=== PATIENT | male | born 1965 | race Caucasian/White ===

== ENCOUNTER 2017-04-23 12:46 | Inpatient (IN) | payer OTHER ==
[2017-04-23 15:26] VITALS: BMI 35.2
--- NOTE | 2017-04-23 17:20 | HP ---
Admission [facility] Chief Complaint: on MMTP was misusing pain medication for chest pain sent for rehab Allergies/Adverse Reactions: Allergies Allergy/AdvReac Type Severity Reaction Status Date / Time penicillin G Allergy Severe Hives Verified 04/23/17 15:59 History of Present Illness: 51 yo m with h/o opioid use diosrder on MMTP 140mg daily, ldm today , [facility] M[facility] PMHX schizoaffective do, HTN, HPe c, taking medications which he does not have with him. no suicidal ideation at this time no suicide attempts in the past. no seizues, no DTs. using ilict benzidiazepiens and prescribed [facility] here for rehab. otehrise doing well on program as per patient. uses benzodiazepines, on occasion but no withdrawwal sx or seizures reported, has not drunk alcohol for many years Exam Limitations: No Limitations - Ebola screening Have you traveled outside of the country in the last 21 days: No Have you had contact with anyone from an Ebola affected area: No Have you been sick,other than usual withdrawal symptoms: No Do you have a fever: No - Review of Systems Constitutional: No Symptoms Reported EENT: reports: No Symptoms Reported Respiratory: reports: No Symptoms reported Cardiac: reports: No Symptoms Reported GI: reports: No Symptoms Reported : reports: No Symptoms Reported Musculoskeletal: reports: Other (pain on sternum when he presses hard) Integumentary: reports: No Symptoms Reported Neuro: reports: No Symptoms reported Endocrine: reports: No Symptoms Reported Hematology: reports: No Symptoms Reported Psychiatric: reports: Judgement Intact, Mood/Affect Appropiate, Orientated x3, Anxious, Depressed Other Systems: Reviewed and Negative Patient History - Patient Medical History Hx Anemia: No Hx Asthma: No Hx Chronic Obstructive Pulmonary Disease (COPD): No Hx Cancer: No Hx Cardiac Disorders: No Hx Congestive Heart Failure: No Hx Hypertension: No Hx Hypercholesterolemia: No Hx Pacemaker: No HX Cerebrovascular Accident: No Hx Seizures: No Hx Dementia: No Hx Diabetes: No Hx Gastrointestinal Disorders: Yes (acid reflux) Hx Liver Disease: No Hx Genitourinary Disorders: No Hx Sexually Transmitted Disorders: No Hx Renal Disease (ESRD): No Hx Thyroid Disease: No Hx Human Immunodeficiency Virus (HIV): No Hx Hepatitis C: Yes (treated but returned, needs retreatment) Hx Depression: Yes Hx Suicide Attempt: Yes (20 years ago) Hx Bipolar Disorder: Yes (WAS ON NEURONTIN,DEPAKOTE IN THE APST.NO MEDS IN 6 MONTHS.) Hx Schizophrenia: No Other Medical History: schizoaffective, no si, no suicide attempts - Patient Surgical History Past Surgical History: Yes Hx Neurologic Surgery: No Hx Cataract Extraction: No Hx Cardiac Surgery: No Hx Lung Surgery: No Hx Breast Surgery: No Hx Breast Biopsy: No Hx Abdominal Surgery: No Hx Appendectomy: No Hx Cholecystectomy: No Hx Genitourinary Surgery: No Hx Section: No Hx Orthopedic Surgery: No Other Surgical History: incision and drainage of abscess of left leg at [facility] in 2009 Anesthesia Reaction: No - PPD History Previous Implant?: Yes Documented Results: Negative w/proof Date: 09/20/14 PPD to be Administered?: Yes - Reproductive History Patient is a Female of Child Bearing Age (11 -55 yrs old): No Patient : No - Smoking Cessation Smoking history: Current every day smoker Have you smoked in the past 12 months: Yes Aproximately how many cigarettes per day: 40 Cigars Per Day: 0 Hx Chewing Tobacco Use: No Initiated information on smoking cessation: Yes 'Breaking Loose' booklet given: 04/23/17 - Substance & Tx. History Hx Alcohol Use: No Hx Substance Use: Yes Substance Use Type: Heroin, Opiates, Prescribed, Tranquilizers Hx Substance Use Treatment: Yes - Substances Abused Benzodiazepine (Klonopin) Route: Oral Frequency: 1-2 times per week Amount used: 3-4 klonpin daily Age of first use: 14 Date of Last Use: 04/21/17 Family Disease History - Family Disease History Family Disease History: Diabetes: Grandparent (ALCOHOLIC), Mother, Other: Grandparent, Father (ALCOHOLIC), Brother (dsa) Admission Physical Exam BHS - Vital Signs Vital Signs: Vital Signs - 24 hr 04/23/17 15:23 Temperature 97 F L Pulse Rate 106 H Respiratory 20 Rate Blood Pressure 145/91 - Physical General Appearance: Yes: Within Normal Limits, No Apparent Distress, Nourished, Appropriately Dressed, Disheveled HEENTM: Yes: Within Normal Limits, EOMI, Hearing grossly Normal, Normal ENT Inspection, Normocephalic, Normal Voice, ROOPA, Pharynx Normal Respiratory: Yes: Within Normal Limits, Chest Non-Tender, Lungs Clear, Normal Breath Sounds, No Respiratory Distress, No Accessory Muscle Use, Other (tender palpation anterior chest wall) Neck: Yes: Within Normal Limits, No masses,lesions,Nodules, Supple, Trachea in good position Breast: Yes: Breast Exam Deferred Cardiology: Yes: Within Normal Limits, Regular Rhythm, Regular Rate, S1, S2 Abdominal: Yes: Within Normal Limits, Normal Bowel Sounds, Non Tender, Flat, Soft Genitourinary: Yes: Within Normal Limits Back: Yes: Within Normal Limits, Normal Inspection Musculoskeletal: Yes: Within Normal Limits, full range of Motion, Gait Steady, Pelvis Stable Extremities: Yes: Within Normal Limits, Normal Capillary Refill, Normal Inspection, Normal Range of Motion, Non-Tender Neurological: Yes: diagnostic sales specialist II-XII NML intact, Fully Oriented, Alert, Motor Strength 5/5, Depressed Affect Integumentary: Yes: Within Normal Limits, Normal Color, Dry, Warm Lymphatic: Yes: Within Normal Limits - Addiitonal Findings: no withdrawal sx, appropriate affect noted - Diagnostic (1) Opioid dependence on agonist therapy Current Visit: Yes Status: Acute (2) Benzodiazepine abuse, episodic Current Visit: Yes Status: Acute (3) Nicotine dependence Current Visit: No Status: Active (4) GERD (gastroesophageal reflux disease) Current Visit: No Status: Chronic (5) Schizoaffective disorder Current Visit: No Status: Chronic Cleared for Admission [facility] - Detox or Rehab Claeared for Rehab Admission: Yes [facility] Breath Alcohol Content Breath Alcohol Content: 0 Urine Drug Screen - Results Drug Screen Negative: No Urine Drug Screen Results: OPI-Opiates, BZO-Benzodiazepines, MTD-Methadone, TCA- Tricyclic Antidepress Inpatient Rehab Admission - Initial Determination Are CD services needed?: Yes Free of communicable disease: Yes Not in need of hospitalization: Yes - Rehab Admission Criteria Comorbidities: Yes Patient is meeting Inpatient Rehab admission criteria:: Yes
[2017-04-23] MEDS ORDERED: MENTHOL/PHENOL 1 EACH UD MM PRN (17:23)
[2017-04-23] MEDS ORDERED: MAGNESIUM CITRATE 300 ML BOTTLE PO PRN (17:23)
[2017-04-23] MEDS ORDERED: MAGNESIUM HYDROX 2400MG/30ML ORAL SUSPENSION 30 ML CUP PO PRN (17:23)
[2017-04-23] MEDS ORDERED: LOPERAMIDE HCL 2 MG CAPSULE PO PRN (17:23)
[2017-04-23] MEDS ORDERED: P-EPHED 60MG/TRIPROLIDI 2.5MG TABLET PO PRN (17:23)
[2017-04-23] MEDS ORDERED: guaiFENesin/D-METHORPHAN HB 10 ML UNIT-DOSE CUPS PO PRN (17:23)
[2017-04-23] MEDS ORDERED: TUBERCULIN PPD 5 TU/0.1ML VIAL ID ONE (20:28)
[2017-04-23] MEDS: NICOTINE 21 MG/24 HOURS TOPICAL PATCH TD SCH (20:29)
[2017-04-23] MEDS: PANTOPRAZOLE 40 MG TABLET (FP) PO SCH (20:30)
[2017-04-23] MEDS: GABAPENTIN 100 MG CAPSULE (FP) PO SCH (21:56)
[2017-04-23] MEDS: THIAMINE HCL 100 MG TABLET (FP) PO SCH (21:56)
[2017-04-23] MEDS: NAPROXEN 500 MG TABLET (FP) PO SCH (21:57)
[2017-04-24 03:11] LABS: URINE APPEARANCE CLEAR; URINE BILIRUBIN NEGATIVE (NEGATIVE); URINE BLOOD NEGATIVE (NEGATIVE); URINE COLOR YELLOW; URINE GLUCOSE (UA) NEGATIVE (NEGATIVE); URINE KETONE NEGATIVE (NEGATIVE); URINE NITRITE NEGATIVE (NEGATIVE); URINE PROTEIN NEGATIVE (NEGATIVE); URINE UROBILINOGEN NEGATIVE mg/dL (0.2-1.0)
[2017-04-24] MEDS: GABAPENTIN 100 MG CAPSULE (FP) PO SCH ×3 (05:58→22:17)
[2017-04-24] MEDS: NICOTINE POLACRILEX 4 MG GUM BC PRN (06:30)
--- NOTE | 2017-04-24 08:57 | HP ---
Psychiatrist Admission - Data Date of interview: 04/24/17 Admission source: [facility] Identifying data: This is the first admission to [address] [place] [address] for this 51 years old H father of 30 yo daughter, undomiciled,supported by [facility]. Medical History: GERD,Hep C. Psychiatric History: Reports first contact with psychiatrist about 20 years ago after first nervious breakdown.Patient was dx with Bipolar disorder,then with schizoaffective disoredr.He reports at least 5 psychiatric hospitalizations.Most recent admission was 5-6 years ago to [facility].Reports one suicidal attempt 20 years ago.Patient was under care of psychiatrist until about 6 months ago.Patient obtains his psychotropic medications from local ER.Depakote 500 mg po hs,Seroquel 200 mg po bid, Neurontin 600 mg po tid,Xanax 2 mg prn. Physical/Sexual Abuse/Trauma History: denies Vital Signs: Vital Signs - 24 hr 04/23/17 04/23/17 04/24/17 15:23 20:27 03:30 Temperature 97 F L 97 F L Pulse Rate 106 H 103 H Respiratory 20 18 20 Rate Blood Pressure 145/91 116/85 04/24/17 06:58 Temperature 97.7 F Pulse Rate 70 Respiratory 18 Rate Blood Pressure 119/77 Allergies/Adverse Reactions: Allergies Allergy/AdvReac Type Severity Reaction Status Date / Time penicillin G Allergy Severe Hives Verified 04/23/17 22:41 Date of last physical exam: 05/23/17 Concur with the findings of this exam: Yes - Substance Abuse/Tx History Hx Alcohol Use: Yes (stopped drinking 7 years ago) Hx Substance Use: Yes (heroin since 14 yo (IV) on MMTP 140 mg ,Xanax 9 yo) Substance Use Type: Alcohol, Heroin, Opiates, Tranquilizers Hx Substance Use Treatment: Yes (completed [facility] 7 yo) Mental Status Exam - Mental Status Exam Alert and Oriented to: Time, Place, Person Cognitive Function: Grossly Intact Patient Appearance: Well Groomed Mood: Anxious Affect: Mood Congruent Patient Behavior: Appropriate, Cooperative Speech Pattern: Clear Voice Loudness: Normal Thought Process: Goal Oriented Thought Disorder: Being Controlled Hallucinations: Denies Suicidal Ideation: Denies Homicidal Ideation: Denies Insight/Judgement: Fair Sleep: Fair Appetite: Good Muscle strength/Tone: Normal Gait/Station: Normal Psychiatric Findings - Problem List ([place] 1, 2,3) (1) Opioid dependence on agonist therapy Current Visit: Yes Status: Chronic (2) Nicotine dependence Current Visit: No Status: Chronic (3) Benzodiazepine dependence Current Visit: Yes Status: Chronic (4) GERD (gastroesophageal reflux disease) Current Visit: Yes Status: Chronic (5) Schizoaffective disorder Current Visit: Yes Status: Chronic - Initial Treatment Plan Initial Treatment Plan: Seroquel 200 mg po bid,Depakote 500 mg po hs.Will monitor progress.
[2017-04-24] MEDS ORDERED: METHADONE HCL 10 MG TABLET PO SCH (09:45)
[2017-04-24] MEDS ORDERED: METHADONE HCL 10 MG TABLET ONE (10:11)
[2017-04-24] MEDS ORDERED: METHADONE HCL 40 MG DISPERSABLE TABLET ONE (10:12)
--- NOTE | 2017-04-24 10:12 | EKG ---
Test Reason : Blood Pressure : / mmHG Vent. Rate : 099 BPM Atrial Rate : 099 BPM P-R Int : 124 ms QRS Dur : 082 ms QT Int : 342 ms P-R-T Axes : 055 025 029 degrees QTc Int : 438 ms NORMAL SINUS RHYTHM NO PREVIOUS ECGS AVAILABLE Confirmed by MAX KIM MD ([id number]) on 04/24/2017 10:12:06 AM Referred By: GEORGETTE BLEVINS Confirmed By:MAX KIM MD
[2017-04-24] MEDS: PRENATAL VITAMINS W/ FOLIC ACID TABLET (FP) PO SCH (10:23)
[2017-04-24] MEDS: NICOTINE 21 MG/24 HOURS TOPICAL PATCH TD SCH (10:23)
[2017-04-24] MEDS: PANTOPRAZOLE 40 MG TABLET (FP) PO SCH (10:24)
[2017-04-24] MEDS: DIVALPROEX SODIUM 500 MG TABLET E.C. PO SCH (10:25)
[2017-04-24] MEDS: METHADONE 120 MG, METHADONE 20 MG PO SCH (10:25)
[2017-04-24] MEDS: NAPROXEN 500 MG TABLET (FP) PO SCH ×2 (10:25→22:17)
[2017-04-24 11:37] LABS: URINE LEUK ESTERASE Negative (NEGATIVE)
[2017-04-24] MEDS ORDERED: FLU VACCINE QUAD 60 MCG/0.5 ML (MDV 17-18) IM ONE (12:00)
[2017-04-24 13:36] LABS: MCH 30.8 pg (25.7-33.7); MCHC 33.5 g/dl (32.0-35.9); MEAN CELL VOLUME 91.8 fl (80-96); MEAN PLT VOLUME 11.6 fl (7.5-11.1); PLATELET COUNT 110 K/MM3 (134-434); RDW 12.7 % (11.9-15.9); WHITE BLOOD COUNT 7.9 K/mm3 (4.0-10.0)
[2017-04-24 13:37] LABS: ALBUMIN 3.6 g/dl (3.4-5.0); ALK PHOS 88 U/L (45-117); ANION GAP 8 (8-16); BILIRUBIN,TOTAL 1.3 mg/dL (0.2-1.0); CALCIUM 8.6 mg/dL (8.5-10.1); CO2 29 mmol/L (21-32); CREATININE 1.4 mg/dL (0.7-1.3); GLUCOSE,RANDOM 94 mg/dL (74-106); SGOT/AST 45 U/L (15-37); SGPT/ALT 31 U/L (12-78); TOT PROT 7.6 g/dl (6.4-8.2)
[2017-04-24 15:44] LABS: HIV 1 & 2 AB NEGATIVE; HIV 1 AGp24 NEGATIVE
[2017-04-24] MEDS: THIAMINE HCL 100 MG TABLET (FP) PO SCH (22:17)
[2017-04-25] MEDS ORDERED: METHADONE HCL 40 MG DISPERSABLE TABLET ONE (05:33)
[2017-04-25] MEDS ORDERED: METHADONE HCL 10 MG TABLET ONE (05:33)
[2017-04-25] MEDS: METHADONE 120 MG, METHADONE 20 MG PO SCH (06:04)
[2017-04-25] MEDS: GABAPENTIN 100 MG CAPSULE (FP) PO SCH ×3 (06:05→21:20)
[2017-04-25] MEDS: PANTOPRAZOLE 40 MG TABLET (FP) PO SCH (09:50)
[2017-04-25] MEDS: NAPROXEN 500 MG TABLET (FP) PO SCH ×2 (09:50→21:20)
[2017-04-25] MEDS: DIVALPROEX SODIUM 500 MG TABLET E.C. PO SCH (09:50)
[2017-04-25] MEDS: PRENATAL VITAMINS W/ FOLIC ACID TABLET (FP) PO SCH (09:50)
[2017-04-25] MEDS: NICOTINE 21 MG/24 HOURS TOPICAL PATCH TD SCH (09:50)
[2017-04-25] MEDS: NICOTINE POLACRILEX 4 MG GUM BC PRN (09:52)
[2017-04-25] MEDS: THIAMINE HCL 100 MG TABLET (FP) PO SCH (21:20)
[2017-04-25] MEDS: MAG HYDROX/AL HYDROX/SIMETH 30 ML UNIT-DOSE CUP PO PRN (23:44)
[2017-04-26] MEDS: ACETAMINOPHEN 325 MG TABLET (FP) PO PRN ×2 (01:50→12:36)
[2017-04-26] MEDS: hydrOXYzine PAMOATE 50 MG CAPSULE (FP) PO PRN (01:51)
[2017-04-26] MEDS ORDERED: METHADONE HCL 10 MG TABLET ONE (03:53)
[2017-04-26] MEDS ORDERED: METHADONE HCL 40 MG DISPERSABLE TABLET ONE (03:54)
[2017-04-26] MEDS: METHADONE 120 MG, METHADONE 20 MG PO SCH (06:14)
[2017-04-26] MEDS: GABAPENTIN 100 MG CAPSULE (FP) PO SCH ×3 (06:14→22:10)
[2017-04-26] MEDS: NAPROXEN 500 MG TABLET (FP) PO SCH ×2 (10:10→22:10)
[2017-04-26] MEDS: DIVALPROEX SODIUM 500 MG TABLET E.C. PO SCH (10:10)
[2017-04-26] MEDS: PRENATAL VITAMINS W/ FOLIC ACID TABLET (FP) PO SCH (10:10)
[2017-04-26] MEDS: NICOTINE 21 MG/24 HOURS TOPICAL PATCH TD SCH (10:10)
[2017-04-26] MEDS: PANTOPRAZOLE 40 MG TABLET (FP) PO SCH (10:10)
[2017-04-26] MEDS: THIAMINE HCL 100 MG TABLET (FP) PO SCH (22:10)
[2017-04-27] MEDS ORDERED: METHADONE HCL 10 MG TABLET ONE (04:11)
[2017-04-27] MEDS ORDERED: METHADONE HCL 40 MG DISPERSABLE TABLET ONE (04:11)
[2017-04-27] MEDS: METHADONE 120 MG, METHADONE 20 MG PO SCH (05:53)
[2017-04-27] MEDS: GABAPENTIN 100 MG CAPSULE (FP) PO SCH ×3 (05:53→21:53)
[2017-04-27] MEDS: NAPROXEN 500 MG TABLET (FP) PO SCH ×2 (10:04→21:53)
[2017-04-27] MEDS: DIVALPROEX SODIUM 500 MG TABLET E.C. PO SCH (10:04)
[2017-04-27] MEDS: PANTOPRAZOLE 40 MG TABLET (FP) PO SCH (10:04)
[2017-04-27] MEDS: PRENATAL VITAMINS W/ FOLIC ACID TABLET (FP) PO SCH (10:05)
[2017-04-27] MEDS: NICOTINE 21 MG/24 HOURS TOPICAL PATCH TD SCH (10:05)
[2017-04-27] MEDS: NICOTINE POLACRILEX 4 MG GUM BC PRN (10:07)
[2017-04-27] MEDS ORDERED: COLLOIDAL OATMEAL 1 BAR EACH TP PRN (11:56)
[2017-04-27] MEDS: TOLNAFTATE 1% CREAM 15 GM TUBE TP SCH ×2 (12:57→21:53)
[2017-04-27] MEDS: CYCLOBENZAPRINE HCL 10 MG TABLET (FP) PO SCH ×2 (14:29→21:53)
[2017-04-27] MEDS: THIAMINE HCL 100 MG TABLET (FP) PO SCH (21:53)
[2017-04-28] MEDS ORDERED: METHADONE HCL 10 MG TABLET ONE (04:13)
[2017-04-28] MEDS ORDERED: METHADONE HCL 40 MG DISPERSABLE TABLET ONE (04:14)
[2017-04-28] MEDS: METHADONE 120 MG, METHADONE 20 MG PO SCH (06:18)
[2017-04-28] MEDS: CYCLOBENZAPRINE HCL 10 MG TABLET (FP) PO SCH ×3 (06:18→21:57)
[2017-04-28] MEDS: GABAPENTIN 100 MG CAPSULE (FP) PO SCH ×3 (06:18→21:57)
[2017-04-28] MEDS: AMMONIUM LACTATE 12% LOTION 225 GM BOTTLE TP PRN (06:44)
[2017-04-28] MEDS: PRENATAL VITAMINS W/ FOLIC ACID TABLET (FP) PO SCH (10:22)
[2017-04-28] MEDS: NICOTINE POLACRILEX 4 MG GUM BC PRN (10:22)
[2017-04-28] MEDS: NAPROXEN 500 MG TABLET (FP) PO SCH ×2 (10:22→21:58)
[2017-04-28] MEDS: PANTOPRAZOLE 40 MG TABLET (FP) PO SCH (10:22)
[2017-04-28] MEDS: NICOTINE 21 MG/24 HOURS TOPICAL PATCH TD SCH (10:22)
[2017-04-28] MEDS: TOLNAFTATE 1% CREAM 15 GM TUBE TP SCH ×2 (10:22→21:58)
[2017-04-28] MEDS: DIVALPROEX SODIUM 500 MG TABLET E.C. PO SCH (10:22)
[2017-04-28] MEDS: THIAMINE HCL 100 MG TABLET (FP) PO SCH (21:57)
[2017-04-29] MEDS ORDERED: METHADONE HCL 40 MG DISPERSABLE TABLET ONE (03:51)
[2017-04-29] MEDS ORDERED: METHADONE HCL 10 MG TABLET ONE (03:51)
[2017-04-29] MEDS: GABAPENTIN 100 MG CAPSULE (FP) PO SCH ×3 (05:54→21:54)
[2017-04-29] MEDS: CYCLOBENZAPRINE HCL 10 MG TABLET (FP) PO SCH ×3 (05:54→21:54)
[2017-04-29] MEDS: METHADONE 120 MG, METHADONE 20 MG PO SCH (05:54)
[2017-04-29] MEDS: PRENATAL VITAMINS W/ FOLIC ACID TABLET (FP) PO SCH (10:12)
[2017-04-29] MEDS: NICOTINE 21 MG/24 HOURS TOPICAL PATCH TD SCH (10:12)
[2017-04-29] MEDS: NAPROXEN 500 MG TABLET (FP) PO SCH ×2 (10:12→21:54)
[2017-04-29] MEDS: DIVALPROEX SODIUM 500 MG TABLET E.C. PO SCH (10:12)
[2017-04-29] MEDS: PANTOPRAZOLE 40 MG TABLET (FP) PO SCH (10:12)
[2017-04-29] MEDS: TOLNAFTATE 1% CREAM 15 GM TUBE TP SCH ×2 (10:12→21:55)
[2017-04-29] MEDS: NICOTINE POLACRILEX 4 MG GUM BC PRN (10:13)
[2017-04-29] MEDS: THIAMINE HCL 100 MG TABLET (FP) PO SCH (21:54)
[2017-04-29] MEDS: AMMONIUM LACTATE 12% LOTION 225 GM BOTTLE TP PRN (21:55)
[2017-04-30] MEDS ORDERED: METHADONE HCL 10 MG TABLET ONE (05:59)
[2017-04-30] MEDS ORDERED: METHADONE HCL 40 MG DISPERSABLE TABLET ONE (05:59)
[2017-04-30] MEDS: METHADONE 120 MG, METHADONE 20 MG PO SCH (06:36)
[2017-04-30] MEDS: CYCLOBENZAPRINE HCL 10 MG TABLET (FP) PO SCH ×3 (06:37→22:25)
[2017-04-30] MEDS: GABAPENTIN 100 MG CAPSULE (FP) PO SCH ×3 (06:37→22:25)
[2017-04-30] MEDS: NAPROXEN 500 MG TABLET (FP) PO SCH ×2 (10:14→22:25)
[2017-04-30] MEDS: PANTOPRAZOLE 40 MG TABLET (FP) PO SCH (10:14)
[2017-04-30] MEDS: DIVALPROEX SODIUM 500 MG TABLET E.C. PO SCH (10:14)
[2017-04-30] MEDS: TOLNAFTATE 1% CREAM 15 GM TUBE TP SCH ×2 (10:14→22:25)
[2017-04-30] MEDS: PRENATAL VITAMINS W/ FOLIC ACID TABLET (FP) PO SCH (10:14)
[2017-04-30] MEDS: NICOTINE 21 MG/24 HOURS TOPICAL PATCH TD SCH (10:14)
[2017-04-30] MEDS: NICOTINE POLACRILEX 4 MG GUM BC PRN (10:16)
[2017-04-30] MEDS: THIAMINE HCL 100 MG TABLET (FP) PO SCH (22:25)
[2017-05-01] MEDS: MAG HYDROX/AL HYDROX/SIMETH 30 ML UNIT-DOSE CUP PO PRN (01:41)
[2017-05-01] MEDS: hydrOXYzine PAMOATE 50 MG CAPSULE (FP) PO PRN (01:41)
[2017-05-01] MEDS ORDERED: METHADONE HCL 10 MG TABLET ONE (04:57)
[2017-05-01] MEDS ORDERED: METHADONE HCL 40 MG DISPERSABLE TABLET ONE (04:57)
[2017-05-01] MEDS: CYCLOBENZAPRINE HCL 10 MG TABLET (FP) PO SCH ×2 (05:48→15:02)
[2017-05-01] MEDS: METHADONE 120 MG, METHADONE 20 MG PO SCH (05:48)
[2017-05-01] MEDS: GABAPENTIN 100 MG CAPSULE (FP) PO SCH ×3 (05:48→21:52)
[2017-05-01] MEDS: DIVALPROEX SODIUM 500 MG TABLET E.C. PO SCH (10:01)
[2017-05-01] MEDS: PRENATAL VITAMINS W/ FOLIC ACID TABLET (FP) PO SCH (10:01)
[2017-05-01] MEDS: NAPROXEN 500 MG TABLET (FP) PO SCH (10:01)
[2017-05-01] MEDS: PANTOPRAZOLE 40 MG TABLET (FP) PO SCH (10:01)
[2017-05-01] MEDS: NICOTINE 21 MG/24 HOURS TOPICAL PATCH TD SCH (10:02)
[2017-05-01] MEDS: TOLNAFTATE 1% CREAM 15 GM TUBE TP SCH ×2 (10:02→21:52)
--- NOTE | 2017-05-01 13:57 | PN ---
BHS Progress Note (SOAP) Subjective: c/o new onset since admission of upper respiratory symptoms , cough, congestion and wheezing, generalized fatigue, nausea , no fever rigor or chils, has diarrhea. Objective: 05/01/17 13:55 Vital Signs - 24 hr 05/01/17 05/01/17 05/01/17 00:30 03:30 07:05 Temperature 98 F Pulse Rate 62 Respiratory 20 20 16 Rate Blood Pressure 112/68 Laboratory Tests 04/24/17 04/24/17 04/24/17 00:00 10:00 10:00 WBC 7.9 RBC 4.19 Hgb 12.9 D Hct 38.5 MCV 91.8 MCH 30.8 MCHC 33.5 RDW 12.7 Plt Count 110 L MPV 11.6 H D Sodium 143 Potassium 4.2 Chloride 106 Carbon Dioxide 29 Anion Gap 8 BUN 16 D Creatinine 1.4 H Creat Clearance w eGFR 53.86 Random Glucose 94 D Calcium 8.6 Total Bilirubin 1.3 H AST 45 H D ALT 31 D Alkaline Phosphatase 88 D Total Protein 7.6 Albumin 3.6 Urine Color Yellow Urine Appearance Clear Urine pH 5.0 Ur Specific [place] 1.011 Urine Protein Negative Urine Glucose (UA) Negative Urine Ketones Negative Urine Blood Negative Urine Nitrite Negative Urine Bilirubin Negative Urine Urobilinogen Negative Ur Leukocyte Esterase Negative RPR Titer HIV 1&2 Antibody Screen HIV P24 Antigen 04/24/17 04/24/17 10:00 10:00 WBC RBC Hgb Hct MCV MCH MCHC RDW Plt Count MPV Sodium Potassium Chloride Carbon Dioxide Anion Gap BUN Creatinine Creat Clearance w eGFR Random Glucose Calcium Total Bilirubin AST ALT Alkaline Phosphatase Total Protein Albumin Urine Color Urine Appearance Urine pH Ur Specific [place] Urine Protein Urine Glucose (UA) Urine Ketones Urine Blood Urine Nitrite Urine Bilirubin Urine Urobilinogen Ur Leukocyte Esterase RPR Titer Nonreactive HIV 1&2 Antibody Screen Negative HIV P24 Antigen Negative dehydrated, elevated lfts, h/o hep c low lt - indicatesliver disease. Assessment: 05/01/17 13:56 dehydration, hep c liver disease, urtis, diarrhea- fluids, decongestant, zofran
[2017-05-01] MEDS ORDERED: DIPHENOXYLATE 2.5/ATROPINE.025 1 COMBO TABLET PO ONE (13:58)
[2017-05-01] MEDS ORDERED: CYCLOBENZAPRINE HCL 10 MG TABLET (FP) PO PRN (14:00)
[2017-05-01] MEDS ORDERED: ONDANSETRON *ODT* 4 MG TABLET SL PRN (14:01)
[2017-05-01] MEDS ORDERED: ONDANSETRON *ODT* 4 MG TABLET SL ONE (14:12)
[2017-05-01] MEDS: MAG HYDROX/ALH/SMC/DPHA/LIDO 240 ML MOUTHWASH MM SCH ×2 (17:08→23:45)
[2017-05-01] MEDS: FLUTICASONE PROP 0.05% 16 GM NASAL SPRAY NS SCH (17:15)
[2017-05-01] MEDS: THIAMINE HCL 100 MG TABLET (FP) PO SCH (21:52)
[2017-05-02] MEDS ORDERED: METHADONE HCL 40 MG DISPERSABLE TABLET ONE (04:20)
[2017-05-02] MEDS ORDERED: METHADONE HCL 10 MG TABLET ONE (04:20)
[2017-05-02] MEDS: METHADONE 120 MG, METHADONE 20 MG PO SCH (06:00)
[2017-05-02] MEDS: MAG HYDROX/ALH/SMC/DPHA/LIDO 240 ML MOUTHWASH MM SCH ×4 (06:00→23:51)
[2017-05-02] MEDS: GABAPENTIN 100 MG CAPSULE (FP) PO SCH ×3 (06:00→22:04)
[2017-05-02] MEDS: PANTOPRAZOLE 40 MG TABLET (FP) PO SCH (10:09)
[2017-05-02] MEDS: PRENATAL VITAMINS W/ FOLIC ACID TABLET (FP) PO SCH (10:09)
[2017-05-02] MEDS: NICOTINE 21 MG/24 HOURS TOPICAL PATCH TD SCH (10:09)
[2017-05-02] MEDS: FLUTICASONE PROP 0.05% 16 GM NASAL SPRAY NS SCH (10:09)
[2017-05-02] MEDS: DIVALPROEX SODIUM 500 MG TABLET E.C. PO SCH (10:09)
[2017-05-02] MEDS: TOLNAFTATE 1% CREAM 15 GM TUBE TP SCH ×2 (10:11→22:04)
[2017-05-02] MEDS: NICOTINE POLACRILEX 4 MG GUM BC PRN (10:12)
[2017-05-02] MEDS: THIAMINE HCL 100 MG TABLET (FP) PO SCH (22:04)
[2017-05-03] MEDS ORDERED: METHADONE HCL 10 MG TABLET ONE (04:15)
[2017-05-03] MEDS ORDERED: METHADONE HCL 40 MG DISPERSABLE TABLET ONE (04:15)
[2017-05-03] MEDS: METHADONE 120 MG, METHADONE 20 MG PO SCH (06:22)
[2017-05-03] MEDS: MAG HYDROX/ALH/SMC/DPHA/LIDO 240 ML MOUTHWASH MM SCH ×4 (06:22→23:01)
[2017-05-03] MEDS: GABAPENTIN 100 MG CAPSULE (FP) PO SCH ×3 (06:22→21:51)
[2017-05-03] MEDS: PRENATAL VITAMINS W/ FOLIC ACID TABLET (FP) PO SCH (10:19)
[2017-05-03] MEDS: PANTOPRAZOLE 40 MG TABLET (FP) PO SCH (10:19)
[2017-05-03] MEDS: DIVALPROEX SODIUM 500 MG TABLET E.C. PO SCH (10:19)
[2017-05-03] MEDS: TOLNAFTATE 1% CREAM 15 GM TUBE TP SCH ×2 (10:19→21:51)
[2017-05-03] MEDS: NICOTINE 21 MG/24 HOURS TOPICAL PATCH TD SCH (10:21)
[2017-05-03] MEDS: FLUTICASONE PROP 0.05% 16 GM NASAL SPRAY NS SCH (10:21)
[2017-05-03] MEDS: NICOTINE POLACRILEX 4 MG GUM BC PRN (10:21)
[2017-05-03] MEDS: THIAMINE HCL 100 MG TABLET (FP) PO SCH (21:51)
[2017-05-04] MEDS ORDERED: METHADONE HCL 10 MG TABLET ONE (03:24)
[2017-05-04] MEDS ORDERED: METHADONE HCL 40 MG DISPERSABLE TABLET ONE (03:24)
[2017-05-04] MEDS: METHADONE 120 MG, METHADONE 20 MG PO SCH (06:50)
[2017-05-04] MEDS: GABAPENTIN 100 MG CAPSULE (FP) PO SCH ×2 (06:51→13:55)
[2017-05-04] MEDS: MAG HYDROX/ALH/SMC/DPHA/LIDO 240 ML MOUTHWASH MM SCH ×3 (06:51→17:05)
[2017-05-04] MEDS: NICOTINE 21 MG/24 HOURS TOPICAL PATCH TD SCH (10:14)
[2017-05-04] MEDS: DIVALPROEX SODIUM 500 MG TABLET E.C. PO SCH (10:14)
[2017-05-04] MEDS: PANTOPRAZOLE 40 MG TABLET (FP) PO SCH (10:14)
[2017-05-04] MEDS: PRENATAL VITAMINS W/ FOLIC ACID TABLET (FP) PO SCH (10:14)
[2017-05-04] MEDS: FLUTICASONE PROP 0.05% 16 GM NASAL SPRAY NS SCH (10:15)
[2017-05-04] MEDS: TOLNAFTATE 1% CREAM 15 GM TUBE TP SCH ×2 (10:15→21:36)
[2017-05-04] MEDS: AMMONIUM LACTATE 12% LOTION 225 GM BOTTLE TP PRN (10:16)
[2017-05-04] MEDS: NICOTINE POLACRILEX 4 MG GUM BC PRN (10:17)
--- NOTE | 2017-05-04 16:00 | PN ---
BHS Progress Note (SOAP) Subjective: c/o tender cut on bottom of foot Objective: 05/04/17 15:59 Laboratory Tests 04/24/17 04/24/17 04/24/17 00:00 10:00 10:00 WBC 7.9 RBC 4.19 Hgb 12.9 D Hct 38.5 MCV 91.8 MCH 30.8 MCHC 33.5 RDW 12.7 Plt Count 110 L MPV 11.6 H D Sodium 143 Potassium 4.2 Chloride 106 Carbon Dioxide 29 Anion Gap 8 BUN 16 D Creatinine 1.4 H Creat Clearance w eGFR 53.86 Random Glucose 94 D Calcium 8.6 Total Bilirubin 1.3 H AST 45 H D ALT 31 D Alkaline Phosphatase 88 D Total Protein 7.6 Albumin 3.6 Urine Color Yellow Urine Appearance Clear Urine pH 5.0 Ur Specific [place] 1.011 Urine Protein Negative Urine Glucose (UA) Negative Urine Ketones Negative Urine Blood Negative Urine Nitrite Negative Urine Bilirubin Negative Urine Urobilinogen Negative Ur Leukocyte Esterase Negative RPR Titer HIV 1&2 Antibody Screen HIV P24 Antigen 04/24/17 04/24/17 10:00 10:00 WBC RBC Hgb Hct MCV MCH MCHC RDW Plt Count MPV Sodium Potassium Chloride Carbon Dioxide Anion Gap BUN Creatinine Creat Clearance w eGFR Random Glucose Calcium Total Bilirubin AST ALT Alkaline Phosphatase Total Protein Albumin Urine Color Urine Appearance Urine pH Ur Specific [place] Urine Protein Urine Glucose (UA) Urine Ketones Urine Blood Urine Nitrite Urine Bilirubin Urine Urobilinogen Ur Leukocyte Esterase RPR Titer Nonreactive HIV 1&2 Antibody Screen Negative HIV P24 Antigen Negative 05/04/17 15:59 Vital Signs - 24 hr 05/04/17 05/04/17 05/04/17 00:30 03:30 06:00 Temperature 98.4 F Pulse Rate 63 Respiratory 20 20 18 Rate Blood Pressure 150/84 cracked dry feet on b[place]om left>right from athletes feet Assessment: 05/04/17 16:00 athletes foot, with cracked soles of feet, soakin epsomsalts, dry and elevate continue tinactin cream
[2017-05-04] MEDS: THIAMINE HCL 100 MG TABLET (FP) PO SCH (21:36)
[2017-05-05] MEDS ORDERED: METHADONE HCL 40 MG DISPERSABLE TABLET ONE (04:22)
[2017-05-05] MEDS ORDERED: METHADONE HCL 10 MG TABLET ONE (04:22)
[2017-05-05] MEDS: METHADONE 120 MG, METHADONE 20 MG PO SCH (06:07)
[2017-05-05] MEDS: MAG HYDROX/ALH/SMC/DPHA/LIDO 240 ML MOUTHWASH MM SCH ×4 (06:07→18:59)
[2017-05-05] MEDS: PANTOPRAZOLE 40 MG TABLET (FP) PO SCH (10:13)
[2017-05-05] MEDS: DIVALPROEX SODIUM 500 MG TABLET E.C. PO SCH (10:13)
[2017-05-05] MEDS: PRENATAL VITAMINS W/ FOLIC ACID TABLET (FP) PO SCH (10:13)
[2017-05-05] MEDS: TOLNAFTATE 1% CREAM 15 GM TUBE TP SCH ×2 (10:15→22:00)
[2017-05-05] MEDS: NICOTINE 21 MG/24 HOURS TOPICAL PATCH TD SCH (10:16)
[2017-05-05] MEDS: FLUTICASONE PROP 0.05% 16 GM NASAL SPRAY NS SCH (10:16)
--- NOTE | 2017-05-05 11:03 | PN ---
Psychiatric Progress Note Vital Signs: Vital Signs Period Temp Pulse Resp BP Sys/Espino Pulse Ox Last 24 Hr 98.4 F 72 18-20 137/87 Date of Session: 05/05/17 Chief Complaint:: Talking to self; Appears to be sluggisg HPI: Patient addressing Sedative, hypnotic or anxiolytic Depenedence comorbid with Opoid Dependence on Agonist Therapy and Schizoaffective Disorder. ROS: GERD Current Medications: Active Medications Generic Name Dose Route Start Last Admin Trade Name Freq PRN Reason Stop Dose Admin Al Hydroxide/Mg Hydroxide 30 ml 04/23/17 17:23 05/01/17 01:41 Mylanta Oral Suspension - PO 30 ml Q6H PRN Administration DYSPEPSIA Colloidal Oatmeal 1 applic 04/27/17 11:56 Aveeno Soap - TP DAILY PRN HYGEINE Divalproex Sodium 500 mg 04/24/17 10:00 05/05/17 10:13 Depakote - PO 500 mg DAILY ALESHIA Administration Eucalyptus/Menthol/Phenol/Sorbitol 1 each 04/23/17 17:23 Cepastat Lozenge - MM Q4H PRN SORE THROAT Fluticasone Propionate 2 spray 05/01/17 14:00 05/05/17 10:16 Flonase - NS 2 spray DAILY ALESHIA Administration Lactic Acid 1 applic 04/27/17 11:56 05/04/17 10:16 Lac-Hydrin 12 TP 1 applic DAILY PRN Administration DRY SKIN Lidocaine/Aluminum/Magnesium/Simeth 5 ml 05/01/17 18:00 05/05/17 06:07 Magic Mouthwash *Sjr Formula* - MM 5 ml Q6HPO ALESHIA Administration Loperamide HCl 4 mg 04/23/17 17:23 Imodium - PO Q6H PRN DIARRHEA Magnesium Citrate 300 ml 04/23/17 17:23 Citroma - PO Q48H PRN CONSTIPATION Magnesium Hydroxide 30 ml 04/23/17 17:23 Milk Of Magnesia - PO DAILY PRN CONSTIPATION Methadone HCl 120 mg/ 140 mg 05/06/17 06:00 Methadone HCl 20 mg PO 05/12/17 05:59 DAILY@0600 ALESHIA Nicotine 21 mg 04/23/17 18:00 05/05/17 10:16 Nicoderm Patch - TD Not Given DAILY ALESHIA Nicotine Polacrilex 4 mg 04/23/17 17:23 05/04/17 10:17 Nicorette Gum - BC 4 mg Q2H PRN Administration NICOTINE REPLACEMENT RX Pantoprazole Sodium 40 mg 04/23/17 18:00 05/05/17 10:13 Protonix - PO 40 mg DAILY ALESHIA Administration Multivit/Folic Acid/Iron 1 tab 04/24/17 10:00 05/05/17 10:13 Vitamins (Sjr) - PO 1 tab DAILY ALESHIA Administration Thiamine HCl 100 mg 04/23/17 22:00 05/04/17 21:36 Vitamin B1 - PO 100 mg HS ALESHIA Administration Tolnaftate 1 applic 04/27/17 12:29 05/05/17 10:15 Tinactin 1% Cream - TP 1 applic BID ALESHIA Administration Medication(s) Change(s): Change Seroquel to 400 mg po HS Current Side Effect: No Lab tests ordered: Yes Lab tests reviewed: Yes Provider note:: Patient reports that he was seeing things and talking to self. Claims by not taking Seroquel for couple of days, he stopped seeing things and no longer talk to himself. He also said he stopped taking Seroquel because he was feeling drowsy after taking the morning dose. He was educated about reason for him to be on Seroquel and he needs to take it to prevent psychotic decompensation. He is currently on Seroquel 200 mg po BID and Depakote 500 mg po HS. Discussed with patient to take Seroquel 400 mg po HS to minimized morning sedation and he agreed to try it that way. Total face to face time:: 25 Mental Status Exam - Mental Status Exam Alert and Oriented to: Time, Place, Person Cognitive Function: Fair Patient Appearance: Well Groomed Mood: Hopeful, Euthymic Affect: Appropriate Patient Behavior: Cooperative Speech Pattern: Clear Voice Loudness: Normal Thought Process: Intact, Goal Oriented Thought Disorder: Not Present Hallucinations: Denies Suicidal Ideation: Denies Homicidal Ideation: Denies Insight/Judgement: Fair Sleep: Fair Appetite: Good Muscle strength/Tone: Normal Gait/Station: Normal Psychiatric Treatment Plan - Problem List (1) Sedative hypnotic or anxiolytic dependence Current Visit: Yes (2) Opioid dependence on agonist therapy Current Visit: Yes (3) Nicotine dependence Current Visit: No (4) Schizoaffective disorder Current Visit: Yes (5) GERD (gastroesophageal reflux disease) Current Visit: Yes Initial treatment plan: 1) Discontinue Seroquel 200 mg po BID. 2) Start Seroquel 400 mg po HS. 3) Monitor progress
[2017-05-05] MEDS ORDERED: ACETAMINOPHEN 325 MG TABLET (FP) PO PRN (20:17)
[2017-05-05] MEDS: THIAMINE HCL 100 MG TABLET (FP) PO SCH (21:58)
[2017-05-05] MEDS: QUEtiapine FUMARATE 400 MG TABLET PO SCH (21:58)
[2017-05-05] MEDS: IBUPROFEN 400 MG TABLET (FP) PO PRN (21:59)
[2017-05-06] MEDS ORDERED: METHADONE HCL 10 MG TABLET ONE (04:37)
[2017-05-06] MEDS ORDERED: METHADONE HCL 40 MG DISPERSABLE TABLET ONE (04:38)
[2017-05-06] MEDS: METHADONE 120 MG, METHADONE 20 MG PO SCH (06:19)
[2017-05-06] MEDS: MAG HYDROX/ALH/SMC/DPHA/LIDO 240 ML MOUTHWASH MM SCH ×5 (06:20→23:46)
--- NOTE | 2017-05-06 09:17 | PN ---
Psychiatric Progress Note Vital Signs: Vital Signs Period Temp Pulse Resp BP Sys/Espino Pulse Ox Last 24 Hr 97.5 F 120 18-20 118/67 Date of Session: 05/06/17 Chief Complaint:: Discharge Note HPI: Patient addressing Sedative, hypnotic or anxiolytic Dependence comorbid with Opoid Dependence on Agonist Therapy and Schizoaffective Disorder ROS: GERD Current Medications: Active Medications Generic Name Dose Route Start Last Admin Trade Name Freq PRN Reason Stop Dose Admin Acetaminophen 325 mg 05/05/17 20:17 Tylenol - PO Q6H PRN FEVER OR PAIN Al Hydroxide/Mg Hydroxide 30 ml 04/23/17 17:23 05/01/17 01:41 Mylanta Oral Suspension - PO 30 ml Q6H PRN Administration DYSPEPSIA Colloidal Oatmeal 1 applic 04/27/17 11:56 Aveeno Soap - TP DAILY PRN HYGEINE Divalproex Sodium 500 mg 04/24/17 10:00 05/05/17 10:13 Depakote - PO 500 mg DAILY ALESHIA Administration Eucalyptus/Menthol/Phenol/Sorbitol 1 each 04/23/17 17:23 Cepastat Lozenge - MM Q4H PRN SORE THROAT Fluticasone Propionate 2 spray 05/01/17 14:00 05/05/17 10:16 Flonase - NS 2 spray DAILY ALESHIA Administration Ibuprofen 400 mg 05/05/17 20:17 05/05/17 21:59 Motrin - PO 400 mg Q6H PRN Administration PAIN Lactic Acid 1 applic 04/27/17 11:56 05/04/17 10:16 Lac-Hydrin 12 TP 1 applic DAILY PRN Administration DRY SKIN Lidocaine/Aluminum/Magnesium/Simeth 5 ml 05/01/17 18:00 05/06/17 06:20 Magic Mouthwash *Sjr Formula* - MM 5 ml Q6HPO ALESHIA Administration Loperamide HCl 4 mg 04/23/17 17:23 Imodium - PO Q6H PRN DIARRHEA Magnesium Citrate 300 ml 04/23/17 17:23 Citroma - PO Q48H PRN CONSTIPATION Magnesium Hydroxide 30 ml 04/23/17 17:23 Milk Of Magnesia - PO DAILY PRN CONSTIPATION Methadone HCl 120 mg/ 140 mg 05/06/17 06:00 05/06/17 06:19 Methadone HCl 20 mg PO 05/12/17 05:59 140 mg DAILY@0600 ALESHIA Administration Nicotine 21 mg 04/23/17 18:00 05/05/17 10:16 Nicoderm Patch - TD Not Given DAILY ALESHIA Nicotine Polacrilex 4 mg 04/23/17 17:23 05/04/17 10:17 Nicorette Gum - BC 4 mg Q2H PRN Administration NICOTINE REPLACEMENT RX Pantoprazole Sodium 40 mg 04/23/17 18:00 05/05/17 10:13 Protonix - PO 40 mg DAILY ALESHIA Administration Multivit/Folic Acid/Iron 1 tab 04/24/17 10:00 05/05/17 10:13 Vitamins (Sjr) - PO 1 tab DAILY ALESHIA Administration Quetiapine Fumarate 400 mg 05/05/17 22:00 05/05/17 21:58 Seroquel - PO 400 mg HS ALESHIA Administration Thiamine HCl 100 mg 04/23/17 22:00 05/05/17 21:58 Vitamin B1 - PO 100 mg HS ALESHIA Administration Tolnaftate 1 applic 04/27/17 12:29 05/05/17 22:00 Tinactin 1% Cream - TP 1 applic BID ALESHIA Administration Current Side Effect: No Lab tests ordered: Yes Lab tests reviewed: Yes Provider note:: Patient will complete this program on 05/07/17. He has met his treatment goals and will continue to address his issues in outpatient treatment at [facility] at [address] [place] [address]. Told publicity writer that from his participation in this program, he has learned the importance of making meetings and have a sponsor. He responded well to Seroquel 400 mg po HS and Depakote 500 mg po HS. Scripts for 30 days supply of medications will be electronicaly transmitted to Pharmacy at [address] [place] [address]. He is schedule for discharge tomorrow Total face to face time:: 35 Mental Status Exam - Mental Status Exam Alert and Oriented to: Time, Place, Person Cognitive Function: Fair Patient Appearance: Well Groomed Mood: Hopeful, Euthymic Affect: Appropriate Patient Behavior: Cooperative Speech Pattern: Clear Voice Loudness: Normal Thought Process: Intact, Goal Oriented Thought Disorder: Not Present Hallucinations: Denies Suicidal Ideation: Denies Homicidal Ideation: Denies Insight/Judgement: Fair Sleep: Fair Appetite: Good Muscle strength/Tone: Normal Gait/Station: Normal Psychiatric Treatment Plan - Problem List (5) GERD (gastroesophageal reflux disease) Initial treatment plan: Patient will be discharged tomorrow and referred to [facility] for outpatient treatment
[2017-05-06] MEDS: PRENATAL VITAMINS W/ FOLIC ACID TABLET (FP) PO SCH (10:24)
[2017-05-06] MEDS: TOLNAFTATE 1% CREAM 15 GM TUBE TP SCH ×2 (10:24→21:34)
[2017-05-06] MEDS: DIVALPROEX SODIUM 500 MG TABLET E.C. PO SCH (10:24)
[2017-05-06] MEDS: FLUTICASONE PROP 0.05% 16 GM NASAL SPRAY NS SCH (10:25)
[2017-05-06] MEDS: PANTOPRAZOLE 40 MG TABLET (FP) PO SCH (10:25)
[2017-05-06] MEDS: NICOTINE 21 MG/24 HOURS TOPICAL PATCH TD SCH (10:25)
[2017-05-06] MEDS: IBUPROFEN 400 MG TABLET (FP) PO PRN (17:10)
[2017-05-06] MEDS: QUEtiapine FUMARATE 400 MG TABLET PO SCH (21:34)
[2017-05-06] MEDS: THIAMINE HCL 100 MG TABLET (FP) PO SCH (21:34)
[2017-05-07] MEDS ORDERED: METHADONE HCL 40 MG DISPERSABLE TABLET ONE (04:35)
[2017-05-07] MEDS ORDERED: METHADONE HCL 10 MG TABLET ONE (04:35)
[2017-05-07] MEDS: MAG HYDROX/ALH/SMC/DPHA/LIDO 240 ML MOUTHWASH MM SCH (06:08)
[2017-05-07] MEDS: METHADONE 120 MG, METHADONE 20 MG PO SCH (06:08)
[2017-05-07 06:53] VITALS: BP 126/80; PULSE 78; TEMP 97
[2017-05-07] MEDS ORDERED: PT OWN MED DRAWER 7, Y5N ONE ×2 (09:37→09:39)
[2017-05-07] MEDS: DIVALPROEX SODIUM 500 MG TABLET E.C. PO SCH (09:38)
[2017-05-07] MEDS: PRENATAL VITAMINS W/ FOLIC ACID TABLET (FP) PO SCH (09:38)
[2017-05-07] MEDS: TOLNAFTATE 1% CREAM 15 GM TUBE TP SCH (09:38)
[2017-05-07] MEDS: NICOTINE 21 MG/24 HOURS TOPICAL PATCH TD SCH (09:39)
[2017-05-07] MEDS: PANTOPRAZOLE 40 MG TABLET (FP) PO SCH (09:39)
[2017-05-07] MEDS: FLUTICASONE PROP 0.05% 16 GM NASAL SPRAY NS SCH (09:40)
== END 2017-05-07 09:50 | disposition home or self-care (01) | DRG 772 ==
LOC: YASAS 12:46 → Y3W 17:36
PROVIDERS: ADMIT Psychiatry & Neurology Psychiatry; ATTEND Psychiatry & Neurology Psychiatry
PROC: HZ42ZZZ Group Counseling for Substance Abuse Treatment, Cognitive-Behavioral (ICD-10-PCS; principal; 2017-04-23)
DX: F11.20 Opioid dependence, uncomplicated (principal); F13.230 Sedative, hypnotic or anxiolytic dependence with withdrawal, uncomplicated; F17.210 Nicotine dependence, cigarettes, uncomplicated; F25.9 Schizoaffective disorder, unspecified; K21.9 Gastro-esophageal reflux disease without esophagitis
CPT/HCPCS: 36415; 80053; 81003; 85027; 86593; 87389; 90688; 93005; 93010; G0008

== ENCOUNTER 2019-12-02 14:27 | Inpatient (IN) | payer OTHER ==
--- NOTE | 2019-12-02 14:52 | BHS.RME ---
Substance Use & Tx History - Substance Use History Heroin Substance amount: 10 bags Substance route: Inhalation (ex: sniffing or snorting) Date of Last Use: 11/18/19 - Last Treatment Date of last treatment: 2016 Rehab Where was last treatment: Rehab Physical/Psych/Mental Status - Behavior General Behavior: Increased activity (restlessness, agitation) Eye Contact: Normal - Cooperativeness Cooperativeness: Cooperative - Thinking Thought Processes: Tight Thought content: Future oriented - Physical Health Problems Is patient presently having any pain?: Yes (chronic low back pain) Does patient presently have any injuries (include location): No Does patient currently have a fever: No COWS - Scale Resting Pulse: 0= [place] 80 or Below Sweatin= No chills or Flushing Restless Observation: 0= Sits Still Pupil Size: 0= Normal to Room Light Bone or Joint Aches: 1= Mild Discomfort Runny Nose/ Eye Tearin= None GI Upset > 30mins: 0= None Tremor Observation: 0= None Yawning Observation: 0= None Anxiety or Irritability: 0= None Goose Flesh Skin: 0=Smooth Skin COWS Score: 1
[2019-12-02 16:18] VITALS: BMI 33.4
--- NOTE | 2019-12-02 16:52 | HP ---
CIWA Score - Admission Criteria OASAS Guidelines: Admission for Medically Managed Detox: Requires at least one of the followin. CIWA greater than 12 2. Seizures within the past 24 hours 3. Delirium tremens within the past 24 hours 4. Hallucinations within the past 24 hours 5. Acute intervention needed for co occurring medical disorder 6. Acute intervention needed for co occurring psychiatric disorder 7. Severe withdrawal that cannot be handled at a lower level of care (continued vomiting, continued diarrhea, abnormal vital signs) requiring intravenous medication and/or fluids 8. Admitting History and Physical - Smoking History Smoking history: Current every day smoker Have you smoked in the past 12 months: Yes Aproximately how many cigarettes per day: 40 - Alcohol/Substance Use Hx Alcohol Use: Yes (stopped drinking 7 years ago) Admission ROS [facility] Chief Complaint: Seeking admission to Rehab Allergies/Adverse Reactions: Allergies Allergy/AdvReac Type Severity Reaction Status Date / Time penicillin G Allergy Severe Hives Verified 12/02/19 17:28 History of Present Illness: 54 years old male is seeking admission admission to Rehab. Patient reports history of heroin dependence since age 14, using 10 bags daily. Last day of use was 11/23/2019. He was transferred from [facility] where he was admitted for the period 11/23/2019-12/02/2019 with complaint of suicidal ideation, insomnia and hallucinations. Patient's SARS-COV-2 IgG order [id number] done on 11/29/2019 indicates 0.29 (Negative). He denies suicidal ideation at this time. He has medical history of hypertension, Hep. C. (treated), heart murmur, Syphilis, GERD, lower back pain, left ear hearing difficulties and psych. history of bipolar disorder, schizo-affective disorder and depression. He is on methadone 140mg tablet oral daily maintenance with [facility]. Dose is to be confirmed by the nurse. Exam Limitations: No Limitations - Ebola screening Have you traveled outside of the country in the last 21 days: No Have you had contact with anyone from an Ebola affected area: No Have you been sick,other than usual withdrawal symptoms: No Do you have a fever: No - Review of Systems Constitutional: No Symptoms Reported EENT: reports: No Symptoms Reported Respiratory: reports: No Symptoms reported Cardiac: reports: No Symptoms Reported GI: reports: Abd. Pain w/ defecation : reports: No Symptoms Reported Musculoskeletal: reports: No Symptoms Reported Integumentary: reports: No Symptoms Reported Neuro: reports: No Symptoms reported Endocrine: reports: No Symptoms Reported Hematology: reports: No Symptoms Reported Psychiatric: reports: Mood/Affect Appropiate, Orientated x3 Other Systems: Reviewed and Negative Patient History - Patient Medical History Hx Anemia: No Hx Asthma: No Hx Chronic Obstructive Pulmonary Disease (COPD): No Hx Cancer: No Hx Cardiac Disorders: Yes (Heart Murmur) Hx Congestive Heart Failure: No Hx Hypertension: Yes Hx Hypercholesterolemia: No Hx Pacemaker: No HX Cerebrovascular Accident: No Hx Seizures: No Hx Dementia: No Hx Diabetes: No Hx Gastrointestinal Disorders: Yes (GERD) Hx Liver Disease: Yes (Hep C (treated)) Hx Genitourinary Disorders: No Hx Sexually Transmitted Disorders: Yes ( Syphillis. Treated ) Hx Renal Disease (ESRD): No Hx Thyroid Disease: No Hx Human Immunodeficiency Virus (HIV): No Hx Hepatitis C: Yes (Treated) Hx Depression: Yes Hx Suicide Attempt: No (Denies suicidal ideation) Hx Bipolar Disorder: Yes Hx Schizophrenia: Yes - Patient Surgical History Past Surgical History: Yes Hx Neurologic Surgery: No Hx Cataract Extraction: No Hx Cardiac Surgery: No Hx Lung Surgery: No Hx Breast Surgery: No Hx Breast Biopsy: No Hx Abdominal Surgery: No Hx Appendectomy: No Hx Cholecystectomy: No Hx Genitourinary Surgery: No Hx Section: No Hx Orthopedic Surgery: No Other Surgical History: incision and drainage of abscess of left leg at [facility] in 2009 Anesthesia Reaction: No - PPD History Previous Implant?: Yes Documented Results: Negative w/proof Implanted On Prior [facility] Admission?: Yes Date: 04/25/17 Results: 0mm PPD to be Administered?: Yes - Reproductive History Patient is a Female of Child Bearing Age (11 -55 yrs old): No (Male) - Smoking Cessation Smoking history: Current every day smoker Have you smoked in the past 12 months: Yes Aproximately how many cigarettes per day: 40 Hx Chewing Tobacco Use: No Initiated information on smoking cessation: Yes 'Breaking Loose' booklet given: 12/02/19 - Substance & Tx. History Hx Alcohol Use: No Hx Substance Use: Yes Substance Use Type: Heroin Hx Substance Use Treatment: Yes ([facility]) - Substances abused Heroin Substance route: Inhalation Frequency: Daily Amount used: 10 bags Age of first use: 14 Date of last use: 11/23/19 Admission Physical Exam [facility] - Vital Signs Vital Signs: Vital Signs - 24 hr 12/02/19 16:17 Temperature 99.7 F H Pulse Rate 76 Respiratory 18 Rate Blood Pressure 149/96 - Physical General Appearance: Yes: Within Normal Limits HEENTM: Yes: Within Normal Limits Respiratory: Yes: Lungs Clear, Normal Breath Sounds Neck: Yes: Within Normal Limits Breast: Yes: Breast Exam Deferred Cardiology: Yes: Within Normal Limits Abdominal: Yes: Within Normal Limits Genitourinary: Yes: Within Normal Limits Back: Yes: Normal Inspection Musculoskeletal: Yes: Within Normal Limits Neurological: Yes: Within Normal Limits Integumentary: Yes: Warm Lymphatic: Yes: Within Normal Limits - Diagnostic (1) Heart murmur Current Visit: Yes Status: Chronic (2) Lower back pain Current Visit: Yes Status: Chronic (3) Hypertension Current Visit: Yes Status: Acute (4) Hard of hearing Current Visit: Yes Status: Chronic (5) Bipolar disorder Current Visit: Yes Status: Chronic Qualifiers: Current episode severity: unspecified (6) Depression Current Visit: Yes Status: Chronic (7) Nicotine dependence Current Visit: Yes Status: Chronic (8) Opioid dependence on agonist therapy Current Visit: Yes Status: Chronic (9) Schizoaffective disorder Current Visit: Yes Status: Chronic Cleared for Admission [facility] - Detox or Rehab [facility] Level of Care: Observation Bed Claeared for Rehab Admission: Yes Breathalyzer - Breathalyzer Breathalyzer: 0 Urine Drug Screen - Test Device Lot number: [id number] Expiration date: 01/22/21 - Control Is test valid?: Yes - Results Drug screen NEGATIVE: No Urine drug screen results: FEN-Fentanyl, MTD-Methadone, BZO-Benzodiazepines Inpatient Rehab Admission - Rehab Decision to Admit Inpatient rehab admission?: Yes - Initial Determination Are CD services needed?: No Free of communicable disease: Yes Not in need of hospitalization: Yes - Rehab Admission Criteria Previous failed treatment: Yes Poor recovery environment: Yes Comorbidities: Yes Lacks judgement: No Patient is meeting Inpatient Rehab admission criteria:: Yes
[2019-12-02] MEDS ORDERED: MAGNESIUM HYDROX 2400MG/30ML ORAL SUSPENSION 30 ML CUP PO PRN (17:16)
[2019-12-02] MEDS ORDERED: MAGNESIUM CITRATE 300 ML BOTTLE PO PRN (17:16)
[2019-12-02] MEDS ORDERED: NICOTINE POLACRILEX 2 MG GUM BUC PRN (17:16)
[2019-12-02] MEDS ORDERED: P-EPHED 60MG/TRIPROLIDI 2.5MG TABLET PO PRN (17:16)
[2019-12-02] MEDS ORDERED: IBUPROFEN 400 MG TABLET (FP) PO PRN (17:16)
[2019-12-02] MEDS ORDERED: guaiFENesin 200 MG/10 ML 10 ML UNIT-DOSE CUPS PO PRN (17:16)
[2019-12-02] MEDS ORDERED: LOPERAMIDE HCL 2 MG CAPSULE PO PRN (17:16)
[2019-12-02] MEDS ORDERED: TUBERCULIN PPD 5 TU/0.1ML VIAL ID ONE (18:19)
[2019-12-02] MEDS: THIAMINE HCL 100 MG TABLET (FP) PO SCH (21:46)
[2019-12-02] MEDS: MELATONIN 5 MG TABLETS PO SCH (21:47)
[2019-12-03] MEDS: MAG HYDROX/AL HYDROX/SIMETH 30 ML UNIT-DOSE CUP PO PRN (01:32)
[2019-12-03] MEDS ORDERED: METHADONE HCL 10 MG TABLET PO SCH (08:15)
[2019-12-03] MEDS ORDERED: METHADONE 120 MG, METHADONE 20 MG PO SCH (08:45)
[2019-12-03] MEDS ORDERED: METHADONE HCL 10 MG TABLET ONE (09:00)
[2019-12-03] MEDS ORDERED: METHADONE HCL 40 MG DISPERSABLE TABLET ONE (09:00)
[2019-12-03] MEDS: METHADONE 120 MG, METHADONE 20 MG PO SCH (09:01)
[2019-12-03] MEDS: PRENATAL VITAMINS W/ FOLIC ACID TABLET (FP) PO SCH (09:02)
[2019-12-03] MEDS: NICOTINE 21 MG/24 HOURS TOPICAL PATCH TD SCH (09:02)
--- NOTE | 2019-12-03 11:36 | EKG ---
Test Reason : Blood Pressure : / mmHG Vent. Rate : 068 BPM Atrial Rate : 068 BPM P-R Int : 132 ms QRS Dur : 084 ms QT Int : 402 ms P-R-T Axes : 013 036 021 degrees QTc Int : 427 ms NORMAL SINUS RHYTHM NORMAL ECG WHEN COMPARED WITH ECG OF 23-APR-2017 21:52, NO SIGNIFICANT CHANGE WAS FOUND Confirmed by CEE DAMIAN MD ([id number]) on 12/03/2019 11:36:26 AM Referred By: Confirmed By:CEE DAMIAN MD
[2019-12-03 11:40] LABS: HEMOGLOBIN 13.1 GM/dL (11.7-16.9); MCH 31.7 pg (25.7-33.7); MCHC 33.7 g/dl (32.0-35.9); MEAN PLT VOLUME 12.7 fl (7.5-11.1); PLATELET COUNT 113 K/MM3 (134-434); RBC 4.15 M/mm3 (4.00-5.60); RDW 12.7 % (11.9-15.9); WHITE BLOOD COUNT 8.1 K/mm3 (4.0-10.0)
[2019-12-03 11:48] LABS: ALBUMIN 3.5 g/dl (3.4-5.0); BILIRUBIN,TOTAL 0.6 mg/dL (0.2-1); BLOOD UREA NITROGEN 32.2 mg/dL (7-18); CALCIUM 9.4 mg/dL (8.5-10.1); CREATININE 1.6 mg/dL (0.55-1.3); POTASSIUM 4.7 mmol/L (3.5-5.1); TOT PROT 7.4 g/dl (6.4-8.2)
[2019-12-03 13:11] LABS: SICKLE CELL SCREEN POSITIVE (NEGATIVE)
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
[2019-12-03 16:59] LABS: URINE APPEARANCE CLEAR; URINE BILIRUBIN NEGATIVE (NEGATIVE); URINE COLOR YELLOW; URINE GLUCOSE (UA) NEGATIVE (NEGATIVE); URINE KETONE NEGATIVE (NEGATIVE); URINE LEUK ESTERASE NEGATIVE (NEGATIVE); URINE NITRITE NEGATIVE (NEGATIVE); URINE PROTEIN NEGATIVE (NEGATIVE); URINE UROBILINOGEN 0.2 mg/dL (0.2-1.0)
--- NOTE | 2019-12-03 21:15 | PN ---
[facility] Progress Note Note: Psychiatry Attending's note (addendum) : Medications revisited. Orders for depakote + seroquel are cancelled. Reason : Medication reconciliation list contains inaccurate data. Patient's current medications (from [facility]) verified by nurse. Bottles seen. Dated 12/02/19. Filled at [facility] ([facility]). Consisting with : olanzapine 10 mg po hs + wellbutrin SR 150 mg po daily. For continuity of care, will resume zyprexa 10 mg po hs + wellbutrin XL 150 mg po daily. Mr Wing is made aware of this plan of care. Consent given (taken by nurse on duty).
[2019-12-03] MEDS: THIAMINE HCL 100 MG TABLET (FP) PO SCH (21:59)
[2019-12-03] MEDS: MELATONIN 5 MG TABLETS PO SCH (21:59)
[2019-12-03] MEDS ORDERED: DIVALPROEX SODIUM 500 MG TABLET E.C. PO SCH (22:00)
[2019-12-03] MEDS ORDERED: GABAPENTIN 300 MG CAPSULE PO SCH (22:00)
[2019-12-03] MEDS: hydrOXYzine PAMOATE 25 MG CAPSULE (FP) PO PRN (22:00)
[2019-12-03] MEDS ORDERED: QUEtiapine FUMARATE 400 MG TABLET PO SCH (22:00)
[2019-12-04] MEDS ORDERED: METHADONE HCL 10 MG TABLET ONE (03:20)
[2019-12-04] MEDS ORDERED: METHADONE HCL 40 MG DISPERSABLE TABLET ONE (03:21)
[2019-12-04] MEDS: METHADONE 120 MG, METHADONE 20 MG PO SCH (06:15)
[2019-12-04] MEDS: PRENATAL VITAMINS W/ FOLIC ACID TABLET (FP) PO SCH (10:13)
[2019-12-04] MEDS: NICOTINE 21 MG/24 HOURS TOPICAL PATCH TD SCH (10:13)
[2019-12-04] MEDS ORDERED: PT OWN MED DRAWER 7, Y5N ONE (10:42)
--- NOTE | 2019-12-04 11:39 | PN ---
[facility] Progress Note Note: Zyprexa 10 mg/hs and Wellbutrin XL 150 mg/day ordered
[2019-12-04] MEDS: MELATONIN 5 MG TABLETS PO SCH (21:08)
[2019-12-04] MEDS: THIAMINE HCL 100 MG TABLET (FP) PO SCH (21:09)
[2019-12-04] MEDS: OLANZapine 10 MG TABLET PO SCH (21:09)
[2019-12-05] MEDS ORDERED: METHADONE HCL 10 MG TABLET ONE (03:16)
[2019-12-05] MEDS ORDERED: METHADONE HCL 40 MG DISPERSABLE TABLET ONE (03:16)
[2019-12-05] MEDS: METHADONE 120 MG, METHADONE 20 MG PO SCH (06:14)
[2019-12-05] MEDS: NICOTINE 21 MG/24 HOURS TOPICAL PATCH TD SCH (10:27)
[2019-12-05] MEDS: PRENATAL VITAMINS W/ FOLIC ACID TABLET (FP) PO SCH (10:27)
--- NOTE | 2019-12-05 10:51 | PN ---
[facility] Progress Note Note: Pt requesting foot cream for itchy feet. Hx Athlete's feet> Vital Signs - 24 hr 12/04/19 12/04/19 12/05/19 14:33 20:37 06:09 Temperature 97.3 F L Pulse Rate 83 Respiratory 18 Rate Blood Pressure 135/94 O2 Sat by Pulse 95 98 98 Oximetry (%) Plan:Tinactin cream as directed.
[2019-12-05] MEDS: TOLNAFTATE 1% CREAM 15 GM TUBE TP SCH ×2 (11:46→21:07)
[2019-12-05] MEDS: LIDOCAINE 5% TOPICAL PATCH TP SCH (14:38)
[2019-12-05] MEDS ORDERED: MASKS NR ONE (19:00)
[2019-12-05] MEDS ORDERED: PT OWN MED DRAWER 7, Y5N ONE (20:16)
[2019-12-05] MEDS: THIAMINE HCL 100 MG TABLET (FP) PO SCH (21:08)
[2019-12-05] MEDS: MELATONIN 5 MG TABLETS PO SCH (21:08)
[2019-12-05] MEDS: OLANZapine 10 MG TABLET PO SCH (21:08)
[2019-12-05] MEDS: LIDOCAINE PATCH REMOVAL MC SCH (21:09)
[2019-12-06] MEDS ORDERED: METHADONE HCL 10 MG TABLET ONE (05:54)
[2019-12-06] MEDS ORDERED: METHADONE HCL 40 MG DISPERSABLE TABLET ONE (05:55)
[2019-12-06] MEDS: METHADONE 120 MG, METHADONE 20 MG PO SCH (06:29)
[2019-12-06] MEDS ORDERED: PT OWN MED DRAWER 7, Y5N ONE (09:07)
[2019-12-06] MEDS: TOLNAFTATE 1% CREAM 15 GM TUBE TP SCH ×2 (09:59→22:46)
[2019-12-06] MEDS: LIDOCAINE 5% TOPICAL PATCH TP SCH (09:59)
[2019-12-06] MEDS: NICOTINE 21 MG/24 HOURS TOPICAL PATCH TD SCH (10:00)
[2019-12-06] MEDS: PRENATAL VITAMINS W/ FOLIC ACID TABLET (FP) PO SCH (10:28)
[2019-12-06 12:01] LABS: BLOOD UREA NITROGEN 22.1 mg/dL (7-18); CREATININE 1.5 mg/dL (0.55-1.3)
[2019-12-06] MEDS: THIAMINE HCL 100 MG TABLET (FP) PO SCH (21:07)
[2019-12-06] MEDS: MELATONIN 5 MG TABLETS PO SCH (21:07)
[2019-12-06] MEDS: OLANZapine 10 MG TABLET PO SCH (21:07)
[2019-12-06] MEDS: LIDOCAINE PATCH REMOVAL MC SCH (21:11)
[2019-12-07 00:09] LABS: HGB SOLUBILITY Positive (Negative); Hgb C 0 % (0.0); Hgb S 38.6 % (0.0)
[2019-12-07] MEDS: ACETAMINOPHEN 325 MG TABLET (FP) PO PRN (02:28)
[2019-12-07] MEDS ORDERED: METHADONE HCL 10 MG TABLET ONE (03:31)
[2019-12-07] MEDS ORDERED: METHADONE HCL 40 MG DISPERSABLE TABLET ONE (03:31)
[2019-12-07] MEDS: METHADONE 120 MG, METHADONE 20 MG PO SCH (06:26)
[2019-12-07] MEDS: LIDOCAINE 5% TOPICAL PATCH TP SCH (10:06)
[2019-12-07] MEDS: NICOTINE 21 MG/24 HOURS TOPICAL PATCH TD SCH (10:06)
[2019-12-07] MEDS: PRENATAL VITAMINS W/ FOLIC ACID TABLET (FP) PO SCH (10:07)
[2019-12-07] MEDS: TOLNAFTATE 1% CREAM 15 GM TUBE TP SCH ×2 (10:07→21:07)
--- NOTE | 2019-12-07 15:44 | PN ---
[facility] Progress Note (SOAP) Subjective: Pt c/o discoloration of lower leg and pain requesting VIDHI stockings. pt denies any bumping against objects. also c/o small cuts on distal ends of multiple fingers and does not know how it happened. Pt reports he has PCP with [facility] [place] [facility]. Objective: 12/07/19 15:40 Vital Signs - 24 hr 12/06/19 12/07/19 12/07/19 19:35 06:56 10:00 Temperature 97.4 F L Pulse Rate 57 L 79 Respiratory 18 Rate Blood Pressure 135/83 139/94 O2 Sat by Pulse 96 96 Oximetry (%) 12/07/19 13:55 Temperature Pulse Rate Respiratory Rate Blood Pressure O2 Sat by Pulse 97 Oximetry (%) Laboratory Tests 12/03/19 12/03/19 12/03/19 07:55 07:55 07:55 WBC 8.1 RBC 4.15 Hgb 13.1 Hct 39.0 MCV 94.0 MCH 31.7 MCHC 33.7 RDW 12.7 Plt Count 113 L MPV 12.7 H Sickle Cell Screen Positive Hemoglobin A Hemoglobin A2 Hemoglobin C Hemoglobin S Variant Hemoglobin Hemoglobin Interpret Maternal Rh Hemoglobin Solubility Sodium 139 Potassium 4.7 Chloride 103 Carbon Dioxide 31 Anion Gap 4 L BUN 32.2 H Creatinine 1.6 H Est GFR (CKD-EPI)AfAm 56.57 Est GFR (CKD-EPI)NonAf 48.81 Random Glucose 100 Calcium 9.4 Total Bilirubin 0.6 AST 26 ALT 19 Alkaline Phosphatase 77 Total Protein 7.4 Albumin 3.5 Urine Color Urine Appearance Urine pH Ur Specific [place] Urine Protein Urine Glucose (UA) Urine Ketones Urine Blood Urine Nitrite Urine Bilirubin Urine Urobilinogen Ur Leukocyte Esterase Valproic Acid Syphilis Serology Reactive A* RPR Titer 12/03/19 12/03/19 12/03/19 07:55 07:55 08:17 WBC RBC Hgb Hct MCV MCH MCHC RDW Plt Count MPV Sickle Cell Screen Hemoglobin A 56.8 L Hemoglobin A2 3.6 H Hemoglobin C 0 Hemoglobin S 38.6 H Variant Hemoglobin 0.0 Hemoglobin Interpret Maternal Rh 1.0 Hemoglobin Solubility Positive H Sodium Potassium Chloride Carbon Dioxide Anion Gap BUN Creatinine Est GFR (CKD-EPI)AfAm Est GFR (CKD-EPI)NonAf Random Glucose Calcium Total Bilirubin AST ALT Alkaline Phosphatase Total Protein Albumin Urine Color Yellow Urine Appearance Clear Urine pH 7.0 D Ur Specific [place] 1.012 Urine Protein Negative Urine Glucose (UA) Negative Urine Ketones Negative Urine Blood Negative Urine Nitrite Negative Urine Bilirubin Negative Urine Urobilinogen 0.2 Ur Leukocyte Esterase Negative Valproic Acid Syphilis Serology RPR Titer Reactive 1:1 H D 12/04/19 12/06/19 12/06/19 07:00 08:10 08:15 WBC RBC Hgb Hct MCV MCH MCHC RDW Plt Count 115 L MPV Sickle Cell Screen Hemoglobin A Hemoglobin A2 Hemoglobin C Hemoglobin S Variant Hemoglobin Hemoglobin Interpret Maternal Rh Hemoglobin Solubility Sodium Potassium Chloride Carbon Dioxide Anion Gap BUN 22.1 H Creatinine 1.5 H Est GFR (CKD-EPI)AfAm 61.16 Est GFR (CKD-EPI)NonAf 52.77 Random Glucose Calcium Total Bilirubin AST ALT Alkaline Phosphatase Total Protein Albumin Urine Color Urine Appearance Urine pH Ur Specific [place] Urine Protein Urine Glucose (UA) Urine Ketones Urine Blood Urine Nitrite Urine Bilirubin Urine Urobilinogen Ur Leukocyte Esterase Valproic Acid < 3.0 L Syphilis Serology RPR Titer Alert o x 3 nad oob ambulating with steady gait Upper ext.:multiple fingers, bilateral with tiny paper-cuts, no bleeding. Lower ext.:left outer lower leg with and area of black and blue discoloration, no skin break, no swelling or redness on other areas. Assessment: 12/07/19 15:44 Echymosis of left Lower leg Plan: Bacitracin ointment to affected areas BID VIDHI stockings apply to lower ext. prn
[2019-12-07] MEDS: MAG HYDROX/AL HYDROX/SIMETH 30 ML UNIT-DOSE CUP PO PRN (16:49)
[2019-12-07] MEDS: BACITRACIN 0.9 GM PACKET TP SCH (21:07)
[2019-12-07] MEDS: MELATONIN 5 MG TABLETS PO SCH (21:08)
[2019-12-07] MEDS: OLANZapine 10 MG TABLET PO SCH (21:08)
[2019-12-07] MEDS: THIAMINE HCL 100 MG TABLET (FP) PO SCH (21:08)
[2019-12-07] MEDS: hydrOXYzine PAMOATE 25 MG CAPSULE (FP) PO PRN (21:08)
[2019-12-07] MEDS: LIDOCAINE PATCH REMOVAL MC SCH (21:32)
[2019-12-08] MEDS ORDERED: METHADONE HCL 10 MG TABLET ONE (03:12)
[2019-12-08] MEDS ORDERED: METHADONE HCL 40 MG DISPERSABLE TABLET ONE (03:12)
[2019-12-08] MEDS: METHADONE 120 MG, METHADONE 20 MG PO SCH (06:04)
[2019-12-08] MEDS: PRENATAL VITAMINS W/ FOLIC ACID TABLET (FP) PO SCH (09:58)
[2019-12-08] MEDS: TOLNAFTATE 1% CREAM 15 GM TUBE TP SCH ×2 (09:59→21:04)
[2019-12-08] MEDS: BACITRACIN 0.9 GM PACKET TP SCH ×2 (09:59→21:05)
[2019-12-08] MEDS: LIDOCAINE 5% TOPICAL PATCH TP SCH (09:59)
[2019-12-08] MEDS: NICOTINE 21 MG/24 HOURS TOPICAL PATCH TD SCH (09:59)
[2019-12-08] MEDS ORDERED: METHOCARBAMOL 750 MG TABLET PO PRN (18:27)
[2019-12-08] MEDS ORDERED: IBUPROFEN 600 MG TABLET (FP) PO PRN (18:29)
[2019-12-08] MEDS ORDERED: IBUPROFEN 600 MG TABLET (FP) PO ONE (18:32)
--- NOTE | 2019-12-08 19:56 | PN ---
[facility] Progress Note Note: pt c/o LBP , no relief w/ Tylenol, Lidocaine patch , declined muscle relaxant . Known chronic LBP per PMHX . No acute injuries noted/ reported. P : ibuprofen 600 mg x once .
[2019-12-08] MEDS ORDERED: PT OWN MED DRAWER 7, Y5N ONE (20:44)
[2019-12-08] MEDS: THIAMINE HCL 100 MG TABLET (FP) PO SCH (21:05)
[2019-12-08] MEDS: MELATONIN 5 MG TABLETS PO SCH (21:05)
[2019-12-08] MEDS: OLANZapine 10 MG TABLET PO SCH (21:05)
[2019-12-08] MEDS: LIDOCAINE PATCH REMOVAL MC SCH (21:05)
[2019-12-08] MEDS: hydrOXYzine PAMOATE 25 MG CAPSULE (FP) PO PRN (21:06)
[2019-12-08] MEDS: MAG HYDROX/AL HYDROX/SIMETH 30 ML UNIT-DOSE CUP PO PRN (23:32)
[2019-12-09] MEDS ORDERED: METHADONE HCL 10 MG TABLET ONE (03:30)
[2019-12-09] MEDS ORDERED: METHADONE HCL 40 MG DISPERSABLE TABLET ONE (03:31)
[2019-12-09] MEDS: METHADONE 120 MG, METHADONE 20 MG PO SCH (06:06)
[2019-12-09] MEDS: BACITRACIN 0.9 GM PACKET TP SCH ×2 (09:31→21:44)
[2019-12-09] MEDS: LIDOCAINE 5% TOPICAL PATCH TP SCH (09:31)
[2019-12-09] MEDS: NICOTINE 21 MG/24 HOURS TOPICAL PATCH TD SCH (09:31)
[2019-12-09] MEDS: PRENATAL VITAMINS W/ FOLIC ACID TABLET (FP) PO SCH (09:32)
[2019-12-09] MEDS: TOLNAFTATE 1% CREAM 15 GM TUBE TP SCH ×2 (09:32→21:21)
[2019-12-09] MEDS ORDERED: PT OWN MED DRAWER 7, Y5N ONE (19:34)
[2019-12-09] MEDS: THIAMINE HCL 100 MG TABLET (FP) PO SCH (21:21)
[2019-12-09] MEDS: MELATONIN 5 MG TABLETS PO SCH (21:21)
[2019-12-09] MEDS: OLANZapine 10 MG TABLET PO SCH (21:21)
[2019-12-09] MEDS: hydrOXYzine PAMOATE 25 MG CAPSULE (FP) PO PRN (21:23)
[2019-12-09] MEDS: LIDOCAINE PATCH REMOVAL MC SCH (21:44)
[2019-12-09] MEDS: ACETAMINOPHEN 325 MG TABLET (FP) PO PRN (23:41)
[2019-12-10] MEDS: MAG HYDROX/AL HYDROX/SIMETH 30 ML UNIT-DOSE CUP PO PRN (01:22)
[2019-12-10] MEDS ORDERED: METHADONE HCL 40 MG DISPERSABLE TABLET ONE (05:29)
[2019-12-10] MEDS ORDERED: METHADONE HCL 10 MG TABLET ONE (05:29)
[2019-12-10] MEDS: METHADONE 120 MG, METHADONE 20 MG PO SCH (06:26)
[2019-12-10] MEDS ORDERED: PT OWN MED DRAWER 7, Y5N ONE (08:53)
[2019-12-10] MEDS: TOLNAFTATE 1% CREAM 15 GM TUBE TP SCH ×2 (09:45→21:23)
[2019-12-10] MEDS: LIDOCAINE 5% TOPICAL PATCH TP SCH (09:46)
[2019-12-10] MEDS: NICOTINE 21 MG/24 HOURS TOPICAL PATCH TD SCH (09:46)
[2019-12-10] MEDS: PRENATAL VITAMINS W/ FOLIC ACID TABLET (FP) PO SCH (09:46)
[2019-12-10] MEDS: BACITRACIN 0.9 GM PACKET TP SCH ×2 (09:47→21:23)
[2019-12-10] MEDS: THIAMINE HCL 100 MG TABLET (FP) PO SCH (21:23)
[2019-12-10] MEDS: OLANZapine 10 MG TABLET PO SCH (21:23)
[2019-12-10] MEDS: hydrOXYzine PAMOATE 25 MG CAPSULE (FP) PO PRN (21:23)
[2019-12-10] MEDS: LIDOCAINE PATCH REMOVAL MC SCH (21:24)
[2019-12-10] MEDS: MELATONIN 5 MG TABLETS PO SCH (21:24)
[2019-12-10] MEDS: ACETAMINOPHEN 325 MG TABLET (FP) PO PRN (23:00)
[2019-12-11] MEDS ORDERED: METHADONE HCL 10 MG TABLET ONE (05:20)
[2019-12-11] MEDS ORDERED: METHADONE HCL 40 MG DISPERSABLE TABLET ONE (05:20)
[2019-12-11] MEDS: METHADONE 120 MG, METHADONE 20 MG PO SCH (06:20)
[2019-12-11] MEDS: PRENATAL VITAMINS W/ FOLIC ACID TABLET (FP) PO SCH (09:47)
[2019-12-11] MEDS: NICOTINE 21 MG/24 HOURS TOPICAL PATCH TD SCH (09:47)
[2019-12-11] MEDS: LIDOCAINE 5% TOPICAL PATCH TP SCH (09:47)
[2019-12-11] MEDS: BACITRACIN 0.9 GM PACKET TP SCH ×2 (09:47→21:08)
[2019-12-11] MEDS: TOLNAFTATE 1% CREAM 15 GM TUBE TP SCH ×2 (09:48→21:09)
[2019-12-11] MEDS: ACETAMINOPHEN 325 MG TABLET (FP) PO PRN (13:18)
[2019-12-11] MEDS: MAG HYDROX/AL HYDROX/SIMETH 30 ML UNIT-DOSE CUP PO PRN (15:50)
[2019-12-11] MEDS: MELATONIN 5 MG TABLETS PO SCH (21:09)
[2019-12-11] MEDS: OLANZapine 10 MG TABLET PO SCH (21:09)
[2019-12-11] MEDS: hydrOXYzine PAMOATE 25 MG CAPSULE (FP) PO PRN (21:11)
[2019-12-11] MEDS: LIDOCAINE PATCH REMOVAL MC SCH (22:47)
[2019-12-11] MEDS: THIAMINE HCL 100 MG TABLET (FP) PO SCH (22:48)
[2019-12-12] MEDS: ACETAMINOPHEN 325 MG TABLET (FP) PO PRN ×2 (00:41→13:45)
[2019-12-12] MEDS ORDERED: METHADONE HCL 40 MG DISPERSABLE TABLET ONE (03:33)
[2019-12-12] MEDS ORDERED: METHADONE HCL 10 MG TABLET ONE (03:33)
[2019-12-12] MEDS: METHADONE 120 MG, METHADONE 20 MG PO SCH (06:12)
[2019-12-12] MEDS: TOLNAFTATE 1% CREAM 15 GM TUBE TP SCH ×2 (10:41→21:06)
[2019-12-12] MEDS: PRENATAL VITAMINS W/ FOLIC ACID TABLET (FP) PO SCH (10:41)
[2019-12-12] MEDS: LIDOCAINE 5% TOPICAL PATCH TP SCH (10:41)
[2019-12-12] MEDS: NICOTINE 21 MG/24 HOURS TOPICAL PATCH TD SCH (10:42)
[2019-12-12] MEDS: BACITRACIN 0.9 GM PACKET TP SCH ×2 (10:42→21:06)
[2019-12-12] MEDS: MAG HYDROX/AL HYDROX/SIMETH 30 ML UNIT-DOSE CUP PO PRN (18:46)
[2019-12-12] MEDS: OLANZapine 10 MG TABLET PO SCH (21:05)
[2019-12-12] MEDS: MELATONIN 5 MG TABLETS PO SCH (21:05)
[2019-12-12] MEDS: hydrOXYzine PAMOATE 25 MG CAPSULE (FP) PO PRN (21:05)
[2019-12-12] MEDS: THIAMINE HCL 100 MG TABLET (FP) PO SCH (21:05)
[2019-12-12] MEDS: LIDOCAINE PATCH REMOVAL MC SCH (21:06)
[2019-12-13] MEDS ORDERED: METHADONE HCL 10 MG TABLET ONE (03:21)
[2019-12-13] MEDS ORDERED: METHADONE HCL 40 MG DISPERSABLE TABLET ONE (03:22)
[2019-12-13] MEDS: METHADONE 120 MG, METHADONE 20 MG PO SCH (06:05)
[2019-12-13] MEDS: PRENATAL VITAMINS W/ FOLIC ACID TABLET (FP) PO SCH (09:05)
[2019-12-13] MEDS: NICOTINE 21 MG/24 HOURS TOPICAL PATCH TD SCH (09:05)
[2019-12-13] MEDS: LIDOCAINE 5% TOPICAL PATCH TP SCH (09:05)
[2019-12-13] MEDS: BACITRACIN 0.9 GM PACKET TP SCH ×2 (09:05→21:05)
[2019-12-13] MEDS: TOLNAFTATE 1% CREAM 15 GM TUBE TP SCH ×2 (09:06→21:05)
[2019-12-13] MEDS: MELATONIN 5 MG TABLETS PO SCH (21:04)
[2019-12-13] MEDS: THIAMINE HCL 100 MG TABLET (FP) PO SCH (21:05)
[2019-12-13] MEDS: OLANZapine 10 MG TABLET PO SCH (21:05)
[2019-12-13] MEDS: LIDOCAINE PATCH REMOVAL MC SCH (21:05)
[2019-12-13] MEDS: hydrOXYzine PAMOATE 25 MG CAPSULE (FP) PO PRN (21:06)
[2019-12-14] MEDS ORDERED: METHADONE HCL 10 MG TABLET ONE (03:29)
[2019-12-14] MEDS ORDERED: METHADONE HCL 40 MG DISPERSABLE TABLET ONE (03:30)
[2019-12-14] MEDS: METHADONE 120 MG, METHADONE 20 MG PO SCH (06:06)
[2019-12-14] MEDS ORDERED: PT OWN MED DRAWER 7, Y5N ONE ×2 (08:35→12:48)
--- NOTE | 2019-12-14 09:49 | DS ---
[facility] Rehab Discharge Summary - [facility] Rehab Discharge Summary Admission Date: 12/02/19 Discharge Date: 12/15/19 - History Present History: Opioid dependence, Sedative dependence Pertinent Past History: 54 years old male reports history of heroin dependence since age 14, using 10 bags daily. Last day of use was 11/23/2019. He was transferred from [facility] where he was admitted for the period 11/23/2019-12/02/2019 with c omplaint of suicidal ideation, insomnia and hallucinations. Patient's SARS-COV-2 IgG order [id number] done on 11/29/2019 indicates 0.29 (Negative). He denies suicidal ideation at this time. PMHx; hypertension, Hep. C. (treated), heart murmur, Syphilis, GERD, lower back pain, left ear hearing difficulties, bipolar disorder, schizo-affective disorder and depression. He is on methadone 140mg tablet oral daily maintenance with [facility]. - Discharge Physical Exam Vital Signs: Vital Signs Temperature 97.1 F L 12/14/19 06:57 Pulse Rate 75 12/14/19 06:57 Respiratory Rate 18 12/14/19 06:57 Blood Pressure 137/97 12/14/19 06:57 O2 Sat by Pulse Oximetry (%) 96 12/14/19 06:57 Pertinent Admission Physical Exam Findings: Physical Exam General: no apparent distress HEENTM: normocephalic, PERRLA, EOMI Neck: supple MSK: Full ROM Neuro: no cognitive deficits noted; - Treatment Discharge Condition: Outpatient referral accepted (Patient will go to [facility] for aftercare. Medically stable for discharge.) - Medication Discharge Medications: Ambulatory Orders Methadone [Dolophine -] 140 mg PO DAILY@0600 tablet MDD 140 05/06/17 Bupropion HCl [Wellbutrin Xl -] 150 mg PO DAILY #30 tab.sr.24h 12/14/19 Olanzapine [ZyPREXA -] 10 mg PO HS #30 tablet 12/14/19 - Medication-Assisted Treatment (MAT) Medication-Assisted Treatment (MAT): Yes MAT Follow-up Referral: [facility] - Discharge Instructions Diet, activity, other medical instructions: Diet: as tolerated Activity: as tolerated Other medical instructions: Please follow up with discharge referral. 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
[2019-12-14] MEDS: BACITRACIN 0.9 GM PACKET TP SCH ×2 (10:01→21:06)
[2019-12-14] MEDS: PRENATAL VITAMINS W/ FOLIC ACID TABLET (FP) PO SCH (10:02)
[2019-12-14] MEDS: LIDOCAINE 5% TOPICAL PATCH TP SCH (10:02)
[2019-12-14] MEDS: TOLNAFTATE 1% CREAM 15 GM TUBE TP SCH ×2 (10:02→21:05)
[2019-12-14] MEDS: NICOTINE 21 MG/24 HOURS TOPICAL PATCH TD SCH (10:02)
[2019-12-14] MEDS: MAG HYDROX/AL HYDROX/SIMETH 30 ML UNIT-DOSE CUP PO PRN (12:49)
--- NOTE | 2019-12-14 15:03 | PN ---
[facility] Progress Note Note: Patient is scheduled for discharge tomorrow. Scripts for 30 days supply of medications(Zyprexa 10 mg/hs, Wellbutrin XL 150 mg/day) will be electronically transmitted to pharmacy, [address] [place] [id number]
[2019-12-14] MEDS: THIAMINE HCL 100 MG TABLET (FP) PO SCH (21:05)
[2019-12-14] MEDS: MELATONIN 5 MG TABLETS PO SCH (21:05)
[2019-12-14] MEDS: hydrOXYzine PAMOATE 25 MG CAPSULE (FP) PO PRN (21:05)
[2019-12-14] MEDS: OLANZapine 10 MG TABLET PO SCH (21:05)
[2019-12-14] MEDS: LIDOCAINE PATCH REMOVAL MC SCH (21:06)
[2019-12-15] MEDS: MAG HYDROX/AL HYDROX/SIMETH 30 ML UNIT-DOSE CUP PO PRN (01:20)
[2019-12-15] MEDS ORDERED: METHADONE HCL 10 MG TABLET ONE (03:15)
[2019-12-15] MEDS ORDERED: METHADONE HCL 40 MG DISPERSABLE TABLET ONE (03:16)
[2019-12-15] MEDS: METHADONE 120 MG, METHADONE 20 MG PO SCH (06:05)
[2019-12-15 06:43] VITALS: BP 137/82; PULSE 72; TEMP 97.5
--- NOTE | 2019-12-15 07:23 | DS ---
[facility] Rehab Discharge Summary - [facility] Rehab Discharge Summary Admission Date: 12/02/19 Discharge Date: 12/15/19 - History Additional Comments: Patient is being discharged today. He reports that he will be picked up by a cab to his methadone program - [facility] to get reinstated. Patient was transferred from [facility] where he was admitted for the period 11/23/2019-12/02/2019 with complaint of suicidal ideation, insomnia and hallucinations. He denies suicidal ideation at this time. Patient's SARS-COV-2 IgG order [id number] done on 11/29/2019 is negative. He is alert and oriented x 3, in no acute distress, vital signs stable and ambulating without difficulties. Patient is discharged in good condition and responded well to treatment. Pertinent Past History: Bezodiazepine dependence Nicotine dependence Hypertension GERD Hard of hearing Heart murmur Low back pain Insomnia Bilar disorder Depression - Discharge Physical Exam Vital Signs: Vital Signs Temperature 97.5 F L 12/15/19 06:41 Pulse Rate 72 12/15/19 06:41 Respiratory Rate 18 12/15/19 06:41 Blood Pressure 137/82 12/15/19 06:41 O2 Sat by Pulse Oximetry (%) 96 12/15/19 06:41 Laboratory Last Values WBC 8.1 K/mm3 (4.0-10.0) 12/03/19 07:55 RBC 4.15 M/mm3 (4.00-5.60) 12/03/19 07:55 Hgb 13.1 GM/dL (11.7-16.9) 12/03/19 07:55 Hct 39.0 % (35.4-49) 12/03/19 07:55 MCV 94.0 fl (80-96) 12/03/19 07:55 MCH 31.7 pg (25.7-33.7) 12/03/19 07:55 MCHC 33.7 g/dl (32.0-35.9) 12/03/19 07:55 RDW 12.7 % (11.9-15.9) 12/03/19 07:55 Plt Count 115 K/MM3 (134-434) L 12/06/19 08:15 MPV 12.7 fl (7.5-11.1) H 12/03/19 07:55 Sickle Cell Screen Positive (NEGATIVE) 12/03/19 07:55 Hemoglobin A 56.8 % (96.4-98.8) L 12/03/19 07:55 Hemoglobin A2 3.6 % (1.8-3.2) H 12/03/19 07:55 Hemoglobin C 0 % (0.0) 12/03/19 07:55 Hemoglobin S 38.6 % (0.0) H 12/03/19 07:55 Variant Hemoglobin 0.0 % (0.0) 12/03/19 07:55 Hemoglobin Interpret (.) 12/03/19 07:55 Maternal Rh 1.0 % (0.0-2.0) 12/03/19 07:55 Hemoglobin Solubility Positive (Negative) H 12/03/19 07:55 Sodium 139 mmol/L (136-145) 12/03/19 07:55 Potassium 4.7 mmol/L (3.5-5.1) 12/03/19 07:55 Chloride 103 mmol/L (98-107) 12/03/19 07:55 Carbon Dioxide 31 mmol/L (21-32) 12/03/19 07:55 Anion Gap 4 MMOL/L (8-16) L 12/03/19 07:55 BUN 22.1 mg/dL (7-18) H 12/06/19 08:10 Creatinine 1.5 mg/dL (0.55-1.3) H 12/06/19 08:10 Est GFR (CKD-EPI)AfAm 61.16 12/06/19 08:10 Est GFR (CKD-EPI)NonAf 52.77 12/06/19 08:10 Random Glucose 100 mg/dL (74-106) 12/03/19 07:55 Calcium 9.4 mg/dL (8.5-10.1) 12/03/19 07:55 Total Bilirubin 0.6 mg/dL (0.2-1) 12/03/19 07:55 AST 26 U/L (15-37) 12/03/19 07:55 ALT 19 U/L (13-61) 12/03/19 07:55 Alkaline Phosphatase 77 U/L (45-117) 12/03/19 07:55 Total Protein 7.4 g/dl (6.4-8.2) 12/03/19 07:55 Albumin 3.5 g/dl (3.4-5.0) 12/03/19 07:55 Urine Color Yellow 12/03/19 08:17 Urine Appearance Clear 12/03/19 08:17 Urine pH 7.0 (5.0-8.0) D 12/03/19 08:17 Ur Specific [place] 1.012 (1.010-1.035) 12/03/19 08:17 Urine Protein Negative (NEGATIVE) 12/03/19 08:17 Urine Glucose (UA) Negative (NEGATIVE) 12/03/19 08:17 Urine Ketones Negative (NEGATIVE) 12/03/19 08:17 Urine Blood Negative (NEGATIVE) 12/03/19 08:17 Urine Nitrite Negative (NEGATIVE) 12/03/19 08:17 Urine Bilirubin Negative (NEGATIVE) 12/03/19 08:17 Urine Urobilinogen 0.2 mg/dL (0.2-1.0) 12/03/19 08:17 Ur Leukocyte Esterase Negative (NEGATIVE) 12/03/19 08:17 Valproic Acid < 3.0 ug/mL (50-100) L 12/04/19 07:00 Syphilis Serology Reactive (NONREACTIVE) A* 12/03/19 07:55 RPR Titer Reactive 1:1 (NONREACTIVE) H D 12/03/19 07:55 Labs reviewed with patient. Patient is to schedule an appointment and follow up with his PCP Pertinent Admission Physical Exam Findings: Benzodiazepine dependence - Treatment Discharge Condition: Discharge condition good - Medication Discharge Medications: Ambulatory Orders Methadone [Dolophine -] 140 mg PO DAILY@0600 tablet MDD 140 05/06/17 Bupropion HCl [Wellbutrin Xl -] 150 mg PO DAILY #30 tab.sr.24h 12/14/19 Olanzapine [ZyPREXA -] 10 mg PO HS #30 tablet 12/14/19 - Medication-Assisted Treatment (MAT) Medication-Assisted Treatment (MAT): No - Discharge Instructions Diet, activity, other medical instructions: Diet: As tolerated Activity: As tolerated Other medical instructions: follow up with PCP - Diagnosis (1) Heart murmur Status: Chronic (2) Lower back pain Status: Chronic (3) Hypertension Status: Chronic (4) Hard of hearing Status: Chronic (5) Bipolar disorder Status: Chronic Qualifiers: Current episode severity: unspecified (6) Depression Status: Chronic (7) Nicotine dependence Status: Chronic (8) Opioid dependence on agonist therapy Status: Chronic (9) Schizoaffective disorder Status: Chronic - AMA Did Patient Leave Against Medical Advice: No
--- NOTE | 2019-12-15 08:27 | DS ---
[facility] Rehab Discharge Summary - [facility] Rehab Discharge Summary Admission Date: 12/02/19 Discharge Date: 12/15/19 - History Present History: Alcohol dependence, Cannabis dependence Pertinent Past History: 54 years old male admitted to Rehab. Patient reports history of heroin dependence since age 14, using 10 bags daily. Last day of use was 11/23/2019. He was transferred from [facility] where he was admitted for the period 11/23/2019-12/02/2019 with complaint of suicidal ideation, insomnia and hallucinations. Patient's SARS-COV-2 IgG order [id number] done on 11/29/2019 indicates 0.29 (Negative). He denies suicidal ideation at this time. He has medical history of hypertension, Hep. C. (treated), heart murmur, Syphilis, GERD, lower back pain, left ear hearing difficulties and psych. history of bipolar disorder, schizo-affective disorder and depression. He is on methadone 140mg tablet oral daily maintenance with [facility]. Dose is to be confirmed by the nurse. - Discharge Physical Exam Vital Signs: Vital Signs Temperature 97.5 F L 12/15/19 06:41 Pulse Rate 72 12/15/19 06:41 Respiratory Rate 18 12/15/19 06:41 Blood Pressure 137/82 12/15/19 06:41 O2 Sat by Pulse Oximetry (%) 96 12/15/19 06:41 - Medication Discharge Medications: Ambulatory Orders Methadone [Dolophine -] 140 mg PO DAILY@0600 tablet MDD 140 05/06/17 Bupropion HCl [Wellbutrin Xl -] 150 mg PO DAILY #30 tab.sr.24h 12/14/19 Olanzapine [ZyPREXA -] 10 mg PO HS #30 tablet 12/14/19 - Discharge Instructions Diet, activity, other medical instructions: Diet: Activity: Other medical instructions: - Diagnosis (1) Opioid dependence Status: Chronic (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
== END 2019-12-15 07:05 | disposition home or self-care (01) | DRG 772 ==
LOC: YASAS 14:27 → Y3E 17:36
PROVIDERS: ADMIT Allergy & Immunology; ATTEND Allergy & Immunology
PROC: HZ42ZZZ Group Counseling for Substance Abuse Treatment, Cognitive-Behavioral (ICD-10-PCS; principal; 2019-12-02)
DX: F11.20 Opioid dependence, uncomplicated (principal); F13.20 Sedative, hypnotic or anxiolytic dependence, uncomplicated; F17.210 Nicotine dependence, cigarettes, uncomplicated; F25.9 Schizoaffective disorder, unspecified; F31.9 Bipolar disorder, unspecified; I10 Essential (primary) hypertension; K21.9 Gastro-esophageal reflux disease without esophagitis; G47.00 Insomnia, unspecified; B35.3 Tinea pedis; M54.5 Low back pain; H91.92 Unspecified hearing loss, left ear; R01.1 Cardiac murmur, unspecified; Z86.19 Personal history of other infectious and parasitic diseases; Z88.0 Allergy status to penicillin; Z91.5 Personal history of self-harm
CPT/HCPCS: 36415; 80053; 80164; 81003; 82565; 83021; 84520; 85027; 85032; 85660; 86593; 86780; 93005; 93010